=== PATIENT | male | born 1980 | race Hispanic/Latino ===

== ENCOUNTER 2016-05-20 22:07 | Emergency (ER) | payer SELFPAY ==
[2016-05-20] MEDS ORDERED: Albuterol-Ipratrop 3 mg / 0.5 (3 ml) UD ONE (22:28)
[2016-05-20 22:38] VITALS: RESP 18; TEMP 98.2
[2016-05-21 00:09] LABS: CHLORIDE 94 mmol/L (98-107); POTASSIUM 3.5 mmol/L (3.6-5.2); SODIUM 135 mmol/L (132-148)
[2016-05-21 00:11] LABS: GFR AFRICAN-AMERICAN > 60
[2016-05-21 00:12] LABS: ALB/GLOB RATIO 1.2 (1.0-2.1); ALKALINE PHOSPHATASE 65 U/L (38-126); ALT/SGPT 23 U/L (21-72); AST/SGOT 27 U/L (17-59); BILIRUBIN,TOTAL 0.5 mg/dL (0.2-1.3); BLOOD UREA NITROGEN 16 mg/dL (9-20); CALCIUM 8.4 mg/dl (8.6-10.4); CARBON DIOXIDE 26 mmol/L (22-30); GLUCOSE,RANDOM 111 mg/dL (75-110); TOTAL PROTEIN 7.6 g/dL (6.3-8.3)
[2016-05-21 00:13] LABS: ALCOHOL SERUM < 10 mg/dl (0-10)
[2016-05-21 00:15] LABS: BASO # 0.4 K/uL (0.0-0.2); BASO % 2.5 % (0.0-2.0); EOS # 0.1 K/uL (0.0-0.7); EOS % 0.6 % (0.0-4.0); HEMATOCRIT 37.4 % (35.0-51.0); LYMPH # 0.8 K/uL (1.0-4.3); LYMPH % 5.6 % (20.0-40.0); MEAN CELL VOLUME 88.4 fL (80.0-94.0); MEAN CORPUSCULAR HEMOGLOBIN 30.5 pg (27.0-31.0); MEAN CORPUSCULAR HGB CONC 34.5 g/dL (33.0-37.0); MONO # 1.4 K/uL (0.0-0.8); NRBC % 0.1 % (0.0-2.0); PLATELET COUNT 249 K/uL (130-400); RED CELL DISTRIBUTION WIDTH 13.1 % (11.5-14.5)
--- NOTE | 2016-05-21 00:32 | C.PDOC ---
History Of Present Illness Patient is a 35 year old male who presents to the ER with a complaint of feeling unusual after ingesting an unknown pill for recreational use. Patient states that he is a frequent ETOH and substance abuser. Patient reports having abused marijuana today. Denies any fever, chills, or nausea. Time Seen by Provider: 05/20/16 23:36 Chief Complaint (Nursing): Substance Abuse History Per: Patient History/Exam Limitations: no limitations Onset/Duration Of Symptoms: Hrs Current Symptoms Are (Timing): Still Present Suicide/Self Injury Attempted (Context): None Modifying Factor(s): Marijuana, Narcotics (Unknown) Past Medical History Reviewed: Historical Data, Nursing Documentation, Vital Signs Vital Signs: Last Vital Signs Temp 98.2 F 05/20/16 22:35 Pulse 74 05/20/16 22:35 Resp 18 05/20/16 22:35 BP 126/82 05/20/16 22:35 Pulse Ox 98 05/21/16 00:36 - Medical History PMH: Anxiety, Back Problems, Depression - [facility] Procedures GROUP PSYCHOTHERAPY (04/10/16) INDIV PSYCHOTHERAPY FOR SUBSTANCE ABUSE TREATMENT, SUPPORT (04/10/16) INDIVIDUAL PSYCHOTHERAPY, BEHAVIORAL (12/20/15) INDIVIDUAL PSYCHOTHERAPY, SUPPORTIVE (04/10/16) MEDICATION MANAGEMENT (04/10/16) Family History: States: Unknown Family Hx - Social History Hx Alcohol Use: No Hx Substance Use: No - Immunization History Hx Tetanus Toxoid Vaccination: No Hx Influenza Vaccination: No Hx Pneumococcal Vaccination: No Review Of Systems Except As Marked, All Systems Reviewed And Found Negative. Constitutional: Negative for: Fever, Chills Respiratory: Negative for: Shortness of Breath Gastrointestinal: Negative for: Nausea Physical Exam - Physical Exam Appears: Well, Non-toxic Skin: Normal Color, Warm, Dry Eye(s): bilateral: Other (Pin point pupils) Oral Mucosa: Moist Cardiovascular: Rhythm Regular Respiratory: Normal Breath Sounds, No Accessory Muscle Use, No Rales, No Rhonchi , No Wheezing Gastrointestinal/Abdominal: Soft, No Tenderness, No Distention, No Guarding, No Rebound ED Course And Treatment - Laboratory Results Result Diagrams: 05/20/16 23:56 05/20/16 23:56 Lab Interpretation: Abnormal (leukocytosis of ? etiology) O2 Sat by Pulse Oximetry: 98 (Room air) Pulse Ox Interpretation: Normal Progress Note: Blood work and, EKG, and urinalysis ordered. Reevaluation Time: 00:46 (pt still trying to provide a urine sample) Medical Decision Making Medical Decision Making: polysubstance abuse Pt cautioned we will probably NOT be able to identify the unknown intoxicant he was abusing in the past 2 days with our current UDS- Disposition - Disposition Disposition Time: 01:00 Condition: GOOD - Clinical Impression Clinical Impression: Drug abuse - Scribe Statement The provider has reviewed the documentation as recorded by the Scribe Jl Márquez All medical record entries made by the Scribe were at my direction and personally dictated by me. I have reviewed the chart and agree that the record accurately reflects my personal performance of the history, physical exam, medical decision making, and the department course for this patient. I have also personally directed, reviewed, and agree with the discharge instructions and disposition. Physician Patient Turnover Patient Signed Over To: Tonny Jensen Handoff Comments: follow-up toxicology and dispo when sober.
[2016-05-21 01:39] LABS: EOSINOPHIL 1 % (0-4); NEUTROPHIL 77 % (50-75); TOTAL CELLS COUNTED 100
[2016-05-21] MEDS ORDERED: Potassium Chloride 20 mEq/15 ml LIQ UD PO STA (04:31)
[2016-05-21] MEDS ORDERED: Potassium Chloride 20 mEq ER Tab PO ONE (04:47)
[2016-05-21 04:51] LABS: RBC URINE 2 /hpf (0-3); URINE BILIRUBIN NEGATIVE (NEGATIVE); URINE BLOOD NEGATIVE (NEGATIVE); URINE COLOR Yellow (YELLOW); URINE GLUCOSE (UA) NORMAL (Normal); URINE KETONE TRACE mg/dL (NEGATIVE); URINE LEUKOCYTE ESTERASE NEG Leu/uL (Negative); URINE PROTEIN NEGATIVE (NEGATIVE); URINE UROBILINOGEN NORMAL mg/dL (0.2-1.0); WBC URINE 3 /hpf (0-5)
[2016-05-21 06:43] VITALS: BP 121/77; PULSE 73; O2SAT 95
--- NOTE | 2016-05-23 07:58 | CARD ---
APPROVED REPORT EKG Measurement Heart [id number] <Conclusion> Normal sinus rhythm Rightward axis Borderline ECG
== END 2016-05-21 06:48 | disposition home or self-care (01) ==
LOC: C.ER 22:07
DX: F19.10 Other psychoactive substance abuse, uncomplicated (principal)
CPT/HCPCS: 80053; 81001; 85025; 99285; G0480

== ENCOUNTER 2017-02-23 18:22 | Inpatient (IN) | payer MEDICAID, OTHER ==
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
[2017-02-23 20:36] LABS: BASO % 0.4 % (0.0-2.0); EOS # 0.1 K/uL (0.0-0.7); EOS % 1.3 % (0.0-4.0); HEMATOCRIT 33.6 % (35.0-51.0); LYMPH # 1.7 K/uL (1.0-4.3); LYMPH % 19.8 % (20.0-40.0); MEAN CORPUSCULAR HEMOGLOBIN 29.8 pg (27.0-31.0); MEAN CORPUSCULAR HGB CONC 34.3 g/dL (33.0-37.0); MEAN PLATELET VOLUME 7.7 fL (7.2-11.7); WHITE BLOOD COUNT 8.4 K/uL (4.8-10.8)
[2017-02-23 20:42] LABS: RBC URINE 10 /hpf (0-3); URINE BACTERIA RARE (<OCC); URINE BILIRUBIN NEGATIVE (NEGATIVE); URINE BLOOD 1+ (NEGATIVE); URINE COLOR Amber (YELLOW); URINE GLUCOSE (UA) NORMAL (Normal); URINE KETONE TRACE mg/dL (NEGATIVE); URINE LEUKOCYTE ESTERASE NEG Leu/uL (Negative); URINE PROTEIN 1+ mg/dL (NEGATIVE); URINE UROBILINOGEN NORMAL mg/dL (0.2-1.0); WBC URINE 10 /hpf (0-5)
[2017-02-23 20:48] LABS: ALB/GLOB RATIO 1.2 (1.0-2.1); ALCOHOL SERUM < 10 mg/dl (0-10); ALKALINE PHOSPHATASE 49 U/L (38-126); ALT/SGPT 22 U/L (21-72); AST/SGOT 41 U/L (17-59); BILIRUBIN,TOTAL 0.7 mg/dL (0.2-1.3); BLOOD UREA NITROGEN 9 mg/dL (9-20); CALCIUM 8.2 mg/dl (8.6-10.4); CARBON DIOXIDE 31 mmol/L (22-30); CHLORIDE 98 mmol/L (98-107); GFR AFRICAN-AMERICAN > 60; GLUCOSE,RANDOM 128 mg/dL (75-110); POTASSIUM 3.2 mmol/L (3.6-5.2); SODIUM 136 mmol/L (132-148); TOTAL PROTEIN 6.6 g/dL (6.3-8.3)
[2017-02-23] MEDS ORDERED: Potassium Chloride 20 mEq ER Tab PO ONE (21:22)
[2017-02-23] MEDS: Potassium Chloride 20 mEq ER Tab PO SCH (21:23)
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
[2017-02-24] MEDS: Potassium Chloride 20 mEq ER Tab PO SCH (09:35)
--- NOTE | 2017-02-24 10:13 | PCM.PSYCH ---
Initial Psychiatric Evaluation - Initial Psychiatric Evaluation Type of Admission: Voluntary Legal Status: Capacity Chief Complaint (in patient's own words): "I was very depressed" History of Present Illness and Precipitating Events: He is seen, chart reviewed, case discussed. Patient is a 36 year old single, male with no children, living in shelters in [facility] and is unemployed. Patient reports increasingly depressed mood, feelings of helplessness, poor sleep and poor appetite. The patient also reports auditory hallucinations, saying negative things. He feels paranoid too, but no delusions elicited. He also claimed to be suicidal but not anymore, although he claimed he was to our nurses. Nevertheless, he contracted for safety and will follow his safety plan. These all (except for his depression) may be due to his wanting to be admitted. He is a cocaine, opioid and cannabis user but he has not used coke/opi "recently " he claims. "Maybe 02/05" He smokes 10 cig/d Psychiatric History: Hospitalized "many times," this is his second here. Family Psychiatric History: Uncle - Unspecified dx Medications: Denies, non-compliant Past Medical History: Denies Past Surgical History: Denies Allergies: Denies Current Medications: Active Medications Generic Name Dose Route Start Last Admin Trade Name Freq PRN Reason Stop Dose Admin Aripiprazole 5 mg 02/24/17 10:00 02/24/17 09:35 Abilify PO 5 mg DAILY ANGIE Administration Hydroxyzine HCl 25 mg 02/23/17 22:26 02/24/17 06:00 Atarax PO 25 mg TID PRN Administration Anxiety Ibuprofen 400 mg 02/24/17 05:40 02/24/17 06:01 Motrin Tab PO 400 mg Q6 PRN Administration Pain, moderate (4-7) Potassium Chloride 20 meq 02/24/17 10:00 02/24/17 09:35 K-Dur 20 Meq Er Tab PO 20 meq DAILY ANGIE Administration Trazodone HCl 50 mg 02/23/17 22:23 Desyrel PO HS PRN Insomnia Zolpidem Tartrate 5 mg 02/23/17 21:28 02/23/17 23:20 Ambien PO 5 mg HS PRN Administration Insomnia Past Psychiatric History - Past Psychiatric History Previous Treatment History: Inpatient Pertinent Medical Hx (Current Medical&Sleep Prob, Allergies): Allergies Allergy/AdvReac Type Severity Reaction Status Date / Time No Known Allergies Allergy Verified 02/23/17 15:40 No Known Home Med 02/23/17 Review of Systems - Neurological Neurological: UNREMARKABLE - Psychiatric Psychiatric: Abnormal Sleep Pattern, Anhedonia, Anxiety, Behavioral Changes, Change in Appetite, Depression, Difficulty Concentrating, Hallucinations, Irritability, Paranoia. absent: Homicidal Ideation, Suicidal Ideation Mental Status Examination - Personal Presentation Personal Presentation: Looks stated age - Affect Affect: Constricted - Motor Activity Motor Activity: Calm - Reliability in Providing Information Reliability in Providing Information: Fair - Speech Speech: Organized - Mood Mood: Depressed, Anxious - Formal Thought Process Formal Thought Process: No Impairment - Cognitive Functions Orientation: Person, Place, Situation, Time Sensorium: Alert Attention/Concentration: Attentive Abstract Thinking: [place] Estimate of Intelligence: Average Judgement: Intact, as evidence by: Insight regarding need for hospitalization Memory: Recent intact, as evidence by: Ability to recall events of the day, Remote intact, as evidenced by: Abilit to recall sig. life events - Risk Risk: Diminished functioning - Strength & Assets Inventory Strength & Assets Inventory: Cooperative - Limitations Limitations: Living alone, Other DSM 5 DX - DSM 5 DSM 5 Diagnosis: Major Depressive Disorder recurrent, severe with Psychotic Features Cocaine use disorder, severe - in early remission Opioid use disorder, severe Personality d/o- unspecified - Recommended/Plan of Treatment Treatment Recommendations and Plan of Treatment: Remeron for depression Abilify for mood sxs and AH/PI As needed medications Gabapentin for augmentation Attend groups and activities Supportive therapy and psychoeducation MA for abstinence CBT for relapse prevention Encourage MAT Refer to rehab or IOP Attend self-help groups as well 33 min Projected ELOS: 5-6 days Prognosis: good w treatment Discharge Plan and Discharge Criteria: no major sxs refer to rehab - Smoking Cessation Smoking Cessation Initiated: Yes
--- NOTE | 2017-02-25 18:29 | PCM.PYCHPN ---
Psychiatric Progress Note - Psychiatric Progress Note Patient seen today, length of contact: 16 minutes Patient Chief Complaint: "I hear voices" Problems Identified/Issues Discussed: Pt was seen and evaluated. Chart reviewed. Pt reported that he had command hallucinations and telling him to do scafry things. Additionally, stated that he tried to ignore them by involving himself in other activities. He reproted that he was smoking 1-2 joints of marijuana daily. He stated that he does not know that joints were laced or not laced. He denied SI, HI, intent or plan. DSM 5 Symptoms Update: Major Depressive Disorder recurrent, severe with Psychotic Features Cocaine use disorder, severe - in early remission Opioid use disorder, severe Personality d/o- unspecified Medication Change: No Medical Record Reviewed: Yes Mental Status Examination - Cognitive Function Orientation: Person, Place, Situation, Time Memory: Intact Attention: WNL Concentration: Poor Association: Loose Fund of Knowledge: WNL Decription of patient's judgement and insights: limited/limited Addtional comments: superficially cooperative - Mood Mood: Depressed, Anxious - Affect Affect: Constricted - Speech Speech: Appropriate, Soft - Formal Thought Process Formal Thought Process: Hallucinations, Paranoia (delusions that people are looking and talking about him) - Suicidal Ideation Suicidal Ideation: No Plan: denied - Homicidal Ideation Homicidal Ideation: No Plan: denied Goal/Treatment Plan - Goal/Treatment Plan Need for Continued Stay: Severe depression anxiety, Discharge may exacerbated symptoms, Severe functional impairment Progress Toward Problem(s) and Goals/Treatment Plan: Continue current meds as per primary team. Therapy in milieu Supportive therapy provided. Estimated Date of D/C: 02/27/17 - Smoking Cessation Smoking Cessation Initiated: Yes
[2017-02-26 06:03] VITALS: O2SAT 96
--- NOTE | 2017-02-26 11:28 | PCM.PYCHPN ---
Psychiatric Progress Note - Psychiatric Progress Note Patient seen today, length of contact: 16 minutes Medication Change: No Medical Record Reviewed: Yes Mental Status Examination - Cognitive Function Orientation: Person, Place, Situation, Time Memory: Intact Attention: WNL Concentration: Poor Association: Loose Fund of Knowledge: WNL - Mood Mood: Depressed, Anxious - Affect Affect: Constricted - Speech Speech: Appropriate, Soft - Formal Thought Process Formal Thought Process: Hallucinations, Paranoia (delusions that people are looking and talking about him) - Suicidal Ideation Suicidal Ideation: No - Homicidal Ideation Homicidal Ideation: No Goal/Treatment Plan - Goal/Treatment Plan Need for Continued Stay: Severe depression anxiety, Discharge may exacerbated symptoms, Severe functional impairment Progress Toward Problem(s) and Goals/Treatment Plan: Major Depressive Disorder recurrent, severe with Psychotic Features Cocaine use disorder, severe - in early remission Opioid use disorder, severe Personality d/o- unspecified Remeron for depression Abilify for mood sxs and AH/PI As needed medications Gabapentin for augmentation Attend groups and activities Supportive therapy and psychoeducation [place] for abstinence CBT for relapse prevention Encourage MAT Refer to rehab or IOP Attend self-help groups as well Estimated Date of D/C: 02/27/17
--- NOTE | 2017-02-27 10:27 | PCM.PYCHPN ---
Psychiatric Progress Note - Psychiatric Progress Note Patient seen today, length of contact: 16 minutes Medication Change: Yes (Risperdal ) Medical Record Reviewed: Yes Mental Status Examination - Cognitive Function Orientation: Person, Place, Situation, Time Memory: Intact Attention: WNL Concentration: Poor Association: Loose Fund of Knowledge: WNL - Mood Mood: Depressed, Anxious - Affect Affect: Constricted - Speech Speech: Appropriate, Soft - Formal Thought Process Formal Thought Process: Hallucinations, Paranoia (delusions that people are looking and talking about him) - Suicidal Ideation Suicidal Ideation: No - Homicidal Ideation Homicidal Ideation: No Goal/Treatment Plan - Goal/Treatment Plan Need for Continued Stay: Severe depression anxiety, Severe functional impairment Progress Toward Problem(s) and Goals/Treatment Plan: Major Depressive Disorder recurrent, severe with Psychotic Features Cocaine use disorder, severe - in early remission Opioid use disorder, severe Personality d/o- unspecified Remeron for depression Abilify for mood sxs and AH/PI As needed medications Gabapentin for augmentation Attend groups and activities Supportive therapy and psychoeducation [place] for abstinence CBT for relapse prevention Encourage MAT Refer to rehab or IOP Attend self-help groups as well Estimated Date of D/C: 02/27/17
--- NOTE | 2017-02-28 09:44 | PCM.PYCHPN ---
Psychiatric Progress Note - Psychiatric Progress Note Patient seen today, length of contact: 16 minutes Medication Change: Yes (d/c Risperdal, increase seroquel) Medical Record Reviewed: Yes Mental Status Examination - Cognitive Function Orientation: Person, Place, Situation, Time Memory: Intact Attention: WNL Concentration: Poor Association: Loose Fund of Knowledge: WNL - Mood Mood: Depressed, Anxious - Affect Affect: Constricted - Speech Speech: Appropriate, Soft - Formal Thought Process Formal Thought Process: Hallucinations, Paranoia (delusions that people are looking and talking about him) - Suicidal Ideation Suicidal Ideation: No - Homicidal Ideation Homicidal Ideation: No Goal/Treatment Plan - Goal/Treatment Plan Need for Continued Stay: Severe depression anxiety, Discharge may exacerbated symptoms, Severe functional impairment Progress Toward Problem(s) and Goals/Treatment Plan: Major Depressive Disorder recurrent, severe with Psychotic Features Cocaine use disorder, severe - in early remission Opioid use disorder, severe Personality d/o- unspecified Remeron for depression increase Abilify for mood sxs and AH/PI As needed medications increase Gabapentin for augmentation Attend groups and activities Supportive therapy and psychoeducation [place] for abstinence CBT for relapse prevention Encourage MAT Refer to rehab or IOP Attend self-help groups as well Estimated Date of D/C: 02/27/17
[2017-03-01 06:24] VITALS: BP 99/59; PULSE 70; RESP 19; TEMP 98.3
--- NOTE | 2017-03-01 09:34 | PCM.PYCHDC ---
Mental Status Examination - Mental Status Examination Orientation: Person, Place, Situation, Time Memory: Intact Mood: Neutral Affect: Constricted Speech: Soft Attention: WNL Concentration: WNL Association: WNL Fund of Knowledge: WNL Formal Thought Process: No Impairment Description of patient's judgement and insight: good, fair Psychotic Thoughts and Behaviors: denies any AVH Suicidal Ideation: No Current Homicidal Ideation?: No Discharge Summary - Discharge Note Reason for Hospitalization: Patient is a 36 year old single, male with no children, living in shelters in [facility] and is unemployed. Patient reports increasingly depressed mood, feelings of helplessness, poor sleep and poor appetite. The patient also reports auditory hallucinations, saying negative things. He feels paranoid too, but no delusions elicited. He also claimed to be suicidal but not anymore, although he claimed he was to our nurses. Nevertheless, he contracted for safety and will follow his safety plan. These all (except for his depression) may be due to his wanting to be admitted. He is a cocaine, opioid and cannabis user but he has not used coke/opi "recently " he claims. "Maybe 02/05" He smokes 10 cig/d Psychiatric History: Hospitalized "many times," this is his second here. Family Psychiatric History: Uncle - Unspecified dx Consultations:: List each consultation separately and include: 1. Reason for request. 2. Findings. 3. Follow-up Summary of Hospital Course include:: 1. Description of specific treatment plan utilized for patients during their course of treatmen. 2. Summarize the time- course for resolution of acute symptoms and/or regressed behaviors. 3. Describe issues identified and worked on during hospitalization. 4. Describe medication utilized. 5. Describe medical problems identified and treated. 6. Reassessment of suicide risk Summary of Hospital Course: During the course of his stay, patient (pt) started progressively improving and he no longer remained irritable, depressed, and suicidal. His mood and anxiety symptoms were improved and he started attending groups and meetings and started socializing. Patient denied any feelings of hopelessness, helplessness, and worthlessness, denied any problem with the sleep or appetite, denied suicidal ideation or homicidal ideation. Pt denied any auditory or visual hallucinations. Some changes were made in his current medications and patient was discharged on following medications. He tolerated these medications very well and denied any side effects. He was discharged to the [facility]. - Final Diagnosis (DSM 5) Condition upon Discharge: STABLE DSM 5: Major Depressive Disorder recurrent, severe with Psychotic Features Cocaine use disorder, severe - in early remission Opioid use disorder, severe Personality d/o- unspecified Disposition: HOME/ ROUTINE Follow-up Treatment Plan: Education: Pt was educated and counseled about the risks and benefits of taking and not taking medications. Pt was educated and counseled about the risks of drinking and abusing drugs. Pt was educated and counseled to go to the ER or call 911 if pt develop suicidal ideation or homicidal ideation, worsening of symptoms or severe side effects of the meds. Prescriptions/Medication Reconciliation: ARIPiprazole [Abilify] 15 mg PO DAILY #30 tab Gabapentin [Neurontin] 300 mg PO TID #90 cap Mirtazapine [Remeron] 30 mg PO HS #30 tab traZODone [Desyrel] 100 mg PO HS PRN #60 tab PRN Reason: Insomnia - Smoking Cessation Smoking Cessation Medication prescribed: No - Antipsychotic Medications Pt discharged on 2 or more routine antipsychotic medications: No
== END 2017-03-01 09:55 | disposition home or self-care (01) | DRG 430 ==
LOC: C.ER 18:22 → C.9E 21:29 → C.5E 22:10
PROVIDERS: ADMIT Psychiatry & Neurology Psychiatry; ATTEND Psychiatry & Neurology Psychiatry
DX: F33.3 Major depressive disorder, recurrent, severe with psychotic symptoms (principal); F11.20 Opioid dependence, uncomplicated; R45.851 Suicidal ideations; F14.20 Cocaine dependence, uncomplicated; F17.210 Nicotine dependence, cigarettes, uncomplicated

== ENCOUNTER 2017-04-09 23:22 | Emergency (ER) | payer MEDICAID, OTHER ==
--- NOTE | 2017-04-10 00:34 | C.PDOC ---
History Of Present Illness <Iam Greenberg - Last Filed: 04/10/17 01:24> <Barbara Perkins - Last Filed: 04/10/17 05:51> Patient presents to the ER requesting detox from heroin, last use was 7 bags this morning. Denies suicidal ideation or homicidal ideation. (Iam Greenberg) History Per: Patient History/Exam Limitations: no limitations Suicide/Self Injury Attempted (Context): None Severity: None Pain Scale Rating Of: 0 Associated Symptoms: denies: Depression, Suicidal Thoughts, Suicidal Plan, Other (Homicidal ideation) Involuntary Hold By: None Recent travel outside of the [place]: No <Ima Greenberg - Last Filed: 04/10/17 01:24> <Barbara Perkins - Last Filed: 04/10/17 05:51> Time Seen by Provider: 04/10/17 00:33 Chief Complaint (Nursing): Substance Abuse Past Medical History Reviewed: Historical Data, Nursing Documentation, Vital Signs - Medical History PMH: Anxiety, Back Problems, Depression Family History: States: No Known Family Hx - Social History Hx Alcohol Use: No Hx Substance Use: Yes - Immunization History Hx Tetanus Toxoid Vaccination: No Hx Influenza Vaccination: Yes Hx Pneumococcal Vaccination: No <DionicioAlexandramarlin - Last Filed: 04/10/17 01:24> Vital Signs: Last Vital Signs Temp 97.8 F 04/10/17 05:45 Pulse 81 04/10/17 05:45 Resp 18 04/10/17 05:45 BP 107/62 04/10/17 05:45 Pulse Ox 95 04/10/17 05:45 - [facility] Procedures GROUP PSYCHOTHERAPY (04/10/16) INDIV PSYCHOTHERAPY FOR SUBSTANCE ABUSE TREATMENT, SUPPORT (04/10/16) INDIVIDUAL PSYCHOTHERAPY, BEHAVIORAL (12/20/15) INDIVIDUAL PSYCHOTHERAPY, SUPPORTIVE (04/10/16) MEDICATION MANAGEMENT (04/10/16) Review Of Systems Constitutional: Negative for: Fever, Chills Gastrointestinal: Negative for: Nausea, Vomiting, Diarrhea Psych: Negative for: Suicidal ideation, Other (Homicidal ideation) <Iam Greenberg - Last Filed: 04/10/17 01:24> Physical Exam - Physical Exam Appears: Non-toxic, No Acute Distress Skin: Warm, Dry Head: Normacephalic Oral Mucosa: Moist Chest: Symmetrical, No Tenderness Cardiovascular: Rhythm Regular Respiratory: No Rales, No Rhonchi, No Wheezing Gastrointestinal/Abdominal: Soft, No Tenderness Neurological/Psych: Oriented x3 <Iam Greenberg - Last Filed: 04/10/17 01:24> ED Course And Treatment O2 Sat by Pulse Oximetry: 99 (room air) Pulse Ox Interpretation: Normal Progress Note: Urinalysis ordered. <Iam Greenberg - Last Filed: 04/10/17 01:24> Disposition Counseled Patient/Family Regarding: Studies Performed, Diagnosis - Disposition Disposition Time: 00:33 <Iam Greenberg - Last Filed: 04/10/17 01:24> - Disposition Disposition Time: 05:51 <Barbara Perkins - Last Filed: 04/10/17 05:51> - Disposition Condition: STABLE Instructions: Opioid Dependence (ED) Forms: [facility] (Arabic) - Clinical Impression Clinical Impression: Drug dependence - Scribe Statement The provider has reviewed the documentation as recorded by the Scribe <Iam Greenberg - Last Filed: 04/10/17 01:24> <Barbara Perkins - Last Filed: 04/10/17 05:51> - Scribe Statement Jl Márquez All medical record entries made by the Scribe were at my direction and personally dictated by me. I have reviewed the chart and agree that the record accurately reflects my personal performance of the history, physical exam, medical decision making, and the department course for this patient. I have also personally directed, reviewed, and agree with the discharge instructions and disposition. (Iam Greenberg)
[2017-04-10 01:00] LABS: URINE BILIRUBIN NEGATIVE (NEGATIVE); URINE BLOOD NEGATIVE (NEGATIVE); URINE CLARITY Hazy (Clear); URINE COLOR Yellow (YELLOW); URINE GLUCOSE (UA) NORMAL (Normal); URINE LEUKOCYTE ESTERASE NEG Leu/uL (Negative); URINE NITRATE NEGATIVE (NEGATIVE); URINE PROTEIN NEGATIVE (NEGATIVE)
[2017-04-10 01:13] LABS: BARBITURATES, UR NEGATIVE (NEGATIVE); BENZODIAZEPINES, UR NEGATIVE (NEGATIVE); PHENCYCLIDINE, UR NEGATIVE (NEGATIVE)
[2017-04-10 01:20] LABS: OPIATES, UR POSITIVE (NEGATIVE)
[2017-04-10 05:48] VITALS: BP 107/62; PULSE 81; RESP 18; TEMP 97.8; O2SAT 95
== END 2017-04-10 05:54 | disposition home or self-care (01) ==
LOC: C.ER 23:22
DX: F19.20 Other psychoactive substance dependence, uncomplicated (principal)

== ENCOUNTER 2017-04-10 07:13 | Inpatient (IN) | payer MEDICAID ==
--- NOTE | 2017-04-10 08:06 | C.PDOC ---
History Of Present Illness 36 y/o male presents to ED requesting Heroin detox and with c/o of cold like symptoms. Patient reports last used yesterday and states he snorts 6 bags daily. Patient denies fever, sob, vomiting, abdominal pain or any other complaints at this time. Time Seen by Provider: 04/10/17 07:48 Chief Complaint (Nursing): Substance Abuse History Per: Patient History/Exam Limitations: no limitations Onset/Duration Of Symptoms: Days Current Symptoms Are (Timing): Still Present Suicide/Self Injury Attempted (Context): None Past Medical History Reviewed: Historical Data, Nursing Documentation, Vital Signs Vital Signs: Last Vital Signs Temp 97.6 F 04/10/17 09:52 Pulse 79 04/10/17 09:52 Resp 20 04/10/17 09:52 BP 111/65 04/10/17 09:52 Pulse Ox 97 04/10/17 09:52 - Medical History PMH: Anxiety, Back Problems, Depression Surgical History: No Surg Hx - [facility] Procedures GROUP PSYCHOTHERAPY (04/10/16) INDIV PSYCHOTHERAPY FOR SUBSTANCE ABUSE TREATMENT, SUPPORT (04/10/16) INDIVIDUAL PSYCHOTHERAPY, BEHAVIORAL (12/20/15) INDIVIDUAL PSYCHOTHERAPY, SUPPORTIVE (04/10/16) MEDICATION MANAGEMENT (04/10/16) Family History: States: No Known Family Hx - Social History Hx Alcohol Use: No Hx Substance Use: Yes (last use yesterday) - Immunization History Hx Tetanus Toxoid Vaccination: No Hx Influenza Vaccination: Yes Hx Pneumococcal Vaccination: No Review Of Systems Respiratory: Positive for: Cough. Negative for: Shortness of Breath Psych: Negative for: Suicidal ideation, Withdrawal Physical Exam - Physical Exam Additional Physical Exam Comments: Constitutional: No acute distress. Head: Normocephalic. Atraumatic. Eyes: PERRL. ENT: Moist mucous membranes. No pharyngeal Erythema or Exudates Neck: Supple. Cardiovascular: Regular rate. Radial pulse 2+ bilaterally. Chest: No tenderness. Respiratory: Clear to auscultation bilaterally. GI: Soft. Nontender. Nondistended. Back: No CVA tenderness. Musculoskeletal: No tenderness or swelling of extremities. Skin: No rash. Neurologic: Alert, no focal deficit ED Course And Treatment - Laboratory Results Result Diagrams: 04/10/17 08:04 04/10/17 08:04 O2 Sat by Pulse Oximetry: 98 (RA) Pulse Ox Interpretation: Normal Medical Decision Making Medical Decision Making: Plan: UA, Blood work, Pending Crisis eval Disposition - Disposition Disposition: HOSPITALIZED Disposition Time: 09:42 Condition: STABLE - Clinical Impression Clinical Impression: Opioid use disorder, severe, dependence - Scribe Statement The provider has reviewed the documentation as recorded by the Alesia Francois All medical record entries made by the Baltaibkina were at my direction and personally dictated by me. I have reviewed the chart and agree that the record accurately reflects my personal performance of the history, physical exam, medical decision making, and the department course for this patient. I have also personally directed, reviewed, and agree with the discharge instructions and disposition.
[2017-04-10 08:09] LABS: BASO # 0.1 K/uL (0.0-0.2); BASO % 0.6 % (0.0-2.0); EOS # 0.2 K/uL (0.0-0.7); EOS % 1.5 % (0.0-4.0); LYMPH # 1.7 K/uL (1.0-4.3); MEAN CELL VOLUME 89.2 fL (80.0-94.0); MEAN CORPUSCULAR HEMOGLOBIN 30.4 pg (27.0-31.0); MEAN CORPUSCULAR HGB CONC 34.1 g/dL (33.0-37.0); MEAN PLATELET VOLUME 7.6 fL (7.2-11.7); MONO # 1.7 K/uL (0.0-0.8); MONO % 13.6 % (0.0-10.0); NEUT # 8.8 K/uL (1.8-7.0); NEUT % 70.3 % (50.0-75.0); RBC 4.28 Mil/uL (4.40-5.90); RED CELL DISTRIBUTION WIDTH 13.6 % (11.5-14.5); WHITE BLOOD COUNT 12.5 K/uL (4.8-10.8)
[2017-04-10 08:19] LABS: URINE BACTERIA RARE (<OCC); URINE BILIRUBIN NEGATIVE (NEGATIVE); URINE BLOOD NEGATIVE (NEGATIVE); URINE CLARITY Hazy (Clear); URINE COLOR Yellow (YELLOW); URINE GLUCOSE (UA) NORMAL (Normal); URINE LEUKOCYTE ESTERASE TRACE Leu/uL (Negative); URINE NITRATE NEGATIVE (NEGATIVE); URINE PROTEIN NEGATIVE (NEGATIVE)
[2017-04-10 08:21] LABS: ALB/GLOB RATIO 1.1 (1.0-2.1); ALBUMIN 3.7 g/dL (3.5-5.0); ALT/SGPT 22 U/L (21-72); AST/SGOT 26 U/L (17-59); BLOOD UREA NITROGEN 12 mg/dL (9-20); CALCIUM 8.6 mg/dl (8.6-10.4); GFR AFRICAN-AMERICAN > 60; GFR NON-AFRICAN AMERICAN > 60
[2017-04-10 09:05] LABS: BARBITURATES, UR NEGATIVE (NEGATIVE); BENZODIAZEPINES, UR NEGATIVE (NEGATIVE); PHENCYCLIDINE, UR NEGATIVE (NEGATIVE)
[2017-04-10 09:07] LABS: OPIATES, UR POSITIVE (NEGATIVE)
--- NOTE | 2017-04-10 10:28 | PCM.PSYCH ---
Initial Psychiatric Evaluation - Initial Psychiatric Evaluation Type of Admission: Voluntary Legal Status: Capacity Chief Complaint (in patient's own words): "I need help" History of Present Illness and Precipitating Events: He is seen, chart reviewed, case discussed. Patient is a 36 year old single, male with no children, still living in shelters in [facility] or with friends and is unemployed. He is using 5-10 bags of heroin daily by snorting. Reports withdrawal sxs. Also using cocaine occasionally. He smokes 10 cig/d He admitted that he had taken 20- 30 mg methadone one time to cope with withdrawal few days ago. Denies psych sxs today other than mild depression Psychiatric History: Hospitalized "many times," including 5 E Family Psychiatric History: Uncle - Unspecified dx Past Medical History: Denies Past Surgical History: Denies Allergies: Denies Past Psychiatric History - Past Psychiatric History Previous Treatment History: Inpatient Pertinent Medical Hx (Current Medical&Sleep Prob, Allergies): Allergies Allergy/AdvReac Type Severity Reaction Status Date / Time No Known Allergies Allergy Verified 04/10/17 07:22 No Known Home Med 04/09/17 Review of Systems - Neurological Neurological: UNREMARKABLE - Psychiatric Psychiatric: Abnormal Sleep Pattern, Anxiety, Difficulty Concentrating, Irritability. absent: Hallucinations, Homicidal Ideation, Suicidal Ideation Mental Status Examination - Personal Presentation Personal Presentation: Looks stated age - Affect Affect: Constricted - Motor Activity Motor Activity: Calm - Reliability in Providing Information Reliability in Providing Information: Good - Speech Speech: Organized - Mood Mood: Anxious - Formal Thought Process Formal Thought Process: No Impairment - Cognitive Functions Orientation: Person, Place, Situation, Time Sensorium: Alert Attention/Concentration: Attentive Estimate of Intelligence: Average Judgement: Intact, as evidence by: Insight regarding need for hospitalization Memory: Recent intact, as evidence by: Ability to recall events of the day, Remote intact, as evidenced by: Abilit to recall sig. life events - Risk Risk: Withdrawal, Diminished functioning - Strength & Assets Inventory Strength & Assets Inventory: Cooperative - Limitations Limitations: Living alone DSM 5 DX - DSM 5 DSM 5 Diagnosis: Opioid withdrawal Opioid use d/o -severe Cocaine use d/o - moderate Tobacco use d/o - mild - Recommended/Plan of Treatment Treatment Recommendations and Plan of Treatment: Methadone detox As needed medications All risks, benefits and alternatives of medications, including no medications, discussed and the patient understood and agreed. Attend groups and activities Supportive therapy and psychoeducation [place] for abstinence CBT for relapse prevention Encourage MAT Refer to rehab or IOP Attend self-help groups as well 34 min Projected ELOS: 4-5 days
[2017-04-10] MEDS ORDERED: Aluminum Hydroxide/Magnesium Hydroxide Susp (30 mL) PO PRN (10:56)
--- NOTE | 2017-04-10 11:17 | PCM.BM ---
<Tasia Mra - Last Filed: 04/10/17 11:15> Treatment Plan Problems - Problems identified on initial assessmt Potential opiate withdrawal Date Initiated: 04/10/17 Time Initiated: 11:16 Assessment reference: NA Treatment assets and liabiliti Patient Assests: cooperative, insightful, self-reliant, ADL independent, physically healthy, negotiates basic needs Patient Liabilities: financial problems, substance abuse - Milieu Protocol Maintain good personal hygiene: daily Encourage regular showers, daily Remind patient to perform daily oral care, daily Assist patient to perform ADL's, every shift Encourage regular showers, every shift Remind patient to perform daily oral care, every shift Assist patient to perform ADL's Maintain personal safety: daily Educate patient to report safety concerns to staff, daily Monitor environment for contraband/sharps, every shift Educate patient to report safety concerns to staff, every shift Monitor environment for contraband/sharps Medication safety: Monitor for expected outcome, potential side effects: every shift, Assess barriers to learning: daily, every shift, Assess readiness for medication education: daily, every shift <Zafar Torres - Last Filed: 04/10/17 22:15> - Diagnosis (1) Opioid use disorder, severe, dependence Status: Acute Interventions: 04/10/17 22:15 * Assess 7x/week regarding severity of withdrawal * Educate regarding risks, benefits, side effects and alternatives of medications * Use Motivational Interviewing for abstinence * Use CBT for relapse prevention * Medication management for withdrawal symptoms * Encourage medication assisted treatment * <Shara Wilson - Last Filed: 04/11/17 11:54> Family Contact Family involvement: No known Family/SO - Goals for Treatment Patient goals for treatment: Complete detox and apply for rehab. Discharge/Continuing Care - Education Needs Education Needs: Patient Medication, Patient Diagnosis/Disease Process, Patient Coping Skills, Patient Anger Management skills, Patient Placement options, Patient Community resources - Discharge Discharge Criteria: Normal sleep pattern, Ability to care for self, No longer exhibiting s/s of withdrawal, Reduction of target symptoms Discharge to:: Substance Abuse Rehab - Treatment Team Participation Patient/Family/SO Statement: 04/11/17 11:54 "I wanna go inpatient from here..." Discussed with Family/SO: No Was Patient/Family/SO present at Treatment Team Meeting: Yes
--- NOTE | 2017-04-11 13:36 | PCM.PYCHPN ---
Psychiatric Progress Note - Psychiatric Progress Note Patient seen today, length of contact: 17 min Patient Chief Complaint: "Not well" Problems Identified/Issues Discussed: The pt is seen, chart reviewed, case discussed with staff. Support given, CBT and [place] used briefly No new symptoms reported, improving slowly and needs more time No SEs from medications, risks discussed. After care discussed - he iliana wants to go to a [facility] due to being homeless and keep relapsing all the time (has poor support and his "friends" all use drugs) Medication Change: Yes Medical Record Reviewed: Yes Mental Status Examination - Cognitive Function Orientation: Person, Place, Situation, Time Memory: Intact Attention: Poor Concentration: Poor Association: WNL Fund of Knowledge: WNL - Mood Mood: Anxious - Affect Affect: Constricted - Speech Speech: Appropriate - Formal Thought Process Formal Thought Process: No Impairment - Suicidal Ideation Suicidal Ideation: No - Homicidal Ideation Homicidal Ideation: No Goal/Treatment Plan - Goal/Treatment Plan Need for Continued Stay: Discharge may exacerbated symptoms, Severe functional impairment Progress Toward Problem(s) and Goals/Treatment Plan: Methadone detox As needed medications All risks, benefits and alternatives of medications, including no medications, discussed and the patient understood and agreed. Attend groups and activities Supportive therapy and psychoeducation [place] for abstinence CBT for relapse prevention Encourage MAT Refer to rehab or IOP Attend self-help groups as well
--- NOTE | 2017-04-12 14:51 | PCM.PYCHPN ---
Psychiatric Progress Note - Psychiatric Progress Note Patient seen today, length of contact: 15 min Patient Chief Complaint: "Still not good" Problems Identified/Issues Discussed: The pt is seen, chart reviewed, case discussed with staff. The pt is compliant with medications and reports no side-effects. Symptoms are improving but needs more time to stabilize. After care discussed, support and psychoeducation given. He spends so much time in bed, likely somewhat depressed and withdrawing but he denies depression, says he is worried a lot. He is interested in [facility] rehab. Medication Change: Yes (detox changes daily) Medical Record Reviewed: Yes Mental Status Examination - Cognitive Function Orientation: Person, Place, Situation, Time Memory: Intact Attention: Poor Concentration: Poor Association: WNL Fund of Knowledge: WNL - Mood Mood: Anxious - Affect Affect: Constricted - Speech Speech: Appropriate - Formal Thought Process Formal Thought Process: No Impairment - Suicidal Ideation Suicidal Ideation: No - Homicidal Ideation Homicidal Ideation: No Goal/Treatment Plan - Goal/Treatment Plan Need for Continued Stay: Discharge may exacerbated symptoms, Severe functional impairment Progress Toward Problem(s) and Goals/Treatment Plan: Methadone detox As needed medications All risks, benefits and alternatives of medications, including no medications, discussed and the patient understood and agreed. Attend groups and activities Supportive therapy and psychoeducation [place] for abstinence CBT for relapse prevention Encourage MAT Refer to rehab or IOP Attend self-help groups as well
--- NOTE | 2017-04-13 13:24 | PCM.PYCHPN ---
Psychiatric Progress Note - Psychiatric Progress Note Patient seen today, length of contact: 15 min Patient Chief Complaint: "So so" Problems Identified/Issues Discussed: The pt is seen, chart reviewed, case discussed with staff. Support given, CBT and [place] used briefly No new symptoms reported, improving slowly and needs more time No SEs from medications, risks discussed. After care discussed - [facility] Medication Change: Yes (detox changes daily) Medical Record Reviewed: Yes Mental Status Examination - Cognitive Function Orientation: Person, Place, Situation, Time Memory: Intact Attention: Poor Concentration: Poor Association: WNL Fund of Knowledge: WNL - Mood Mood: Anxious - Affect Affect: Constricted - Speech Speech: Appropriate - Formal Thought Process Formal Thought Process: No Impairment - Suicidal Ideation Suicidal Ideation: No - Homicidal Ideation Homicidal Ideation: No Goal/Treatment Plan - Goal/Treatment Plan Need for Continued Stay: Discharge may exacerbated symptoms, Severe functional impairment Progress Toward Problem(s) and Goals/Treatment Plan: Methadone detox As needed medications All risks, benefits and alternatives of medications, including no medications, discussed and the patient understood and agreed. Attend groups and activities Supportive therapy and psychoeducation [place] for abstinence CBT for relapse prevention Encourage MAT Refer to rehab or IOP Attend self-help groups as well
[2017-04-14 06:41] VITALS: RESP 18
--- NOTE | 2017-04-14 13:32 | PCM.PYCHPN ---
Psychiatric Progress Note - Psychiatric Progress Note Patient seen today, length of contact: 15 min Patient Chief Complaint: "So so" Problems Identified/Issues Discussed: The pt is seen, chart reviewed, case discussed with staff. The pt is compliant with medications and reports no side-effects. Symptoms are improving but needs more time to stabilize. After care discussed, support and psychoeducation given. He is aloof, mostly in bed. Medication Change: Yes (detox changes daily) Medical Record Reviewed: Yes Mental Status Examination - Cognitive Function Orientation: Person, Place, Situation, Time Memory: Intact Attention: Poor Concentration: Poor Association: WNL Fund of Knowledge: WNL - Mood Mood: Anxious - Affect Affect: Constricted - Speech Speech: Appropriate - Formal Thought Process Formal Thought Process: No Impairment - Suicidal Ideation Suicidal Ideation: No - Homicidal Ideation Homicidal Ideation: No Goal/Treatment Plan - Goal/Treatment Plan Need for Continued Stay: Discharge may exacerbated symptoms, Severe functional impairment Progress Toward Problem(s) and Goals/Treatment Plan: Methadone detox As needed medications All risks, benefits and alternatives of medications, including no medications, discussed and the patient understood and agreed. Attend groups and activities Supportive therapy and psychoeducation [place] for abstinence CBT for relapse prevention Encourage MAT Refer to rehab or IOP Attend self-help groups as well
[2017-04-15 06:52] VITALS: PULSE 68; TEMP 98.1
--- NOTE | 2017-04-15 08:44 | PCM.PYCHDC ---
Mental Status Examination - Mental Status Examination Orientation: Person, Place, Situation, Time Memory: Intact Mood: Neutral Affect: Broad Speech: Appropriate Attention: WNL Concentration: WNL Language: Word Retrieval Association: WNL Fund of Knowledge: WNL Formal Thought Process: No Impairment Description of patient's judgement and insight: fair Psychotic Thoughts and Behaviors: denies Suicidal Ideation: No Current Homicidal Ideation?: No Discharge Summary - Discharge Note Reason for Hospitalization: Opioid Detox Consultations:: List each consultation separately and include: 1. Reason for request. 2. Findings. 3. Follow-up Summary of Hospital Course include:: 1. Description of specific treatment plan utilized for patients during their course of treatmen. 2. Summarize the time- course for resolution of acute symptoms and/or regressed behaviors. 3. Describe issues identified and worked on during hospitalization. 4. Describe medication utilized. 5. Describe medical problems identified and treated. 6. Reassessment of suicide risk Summary of Hospital Course: On admission: Patient is a 36 year old single, male with no children, still living in shelters in [facility] or with friends and is unemployed. He is using 5-10 bags of heroin daily by snorting. Reports withdrawal sxs. Also using cocaine occasionally. He smokes 10 cig/d He admitted that he had taken 20- 30 mg methadone one time to cope with withdrawal few days ago. Denies psych sxs today other than mild depression Psychiatric History: Hospitalized "many times," including 5 E Family Psychiatric History: Uncle - Unspecified dx Past Medical History: Denies Past Surgical History: Denies Allergies: Denies Hospital Course: The pt was admitted and started on treatment with psychotherapy, support, psychoeducation and medications. [place] and CBT used. The pt attended groups and activities, as well as milieu therapy. All the risks and benefits of medications are discussed and the patient understood and agreed. The pt improved with the treatments provided. After care discussed with the patient: [facility] in He did not want any meds Another pt claimed he snorted one of his pills. - Diagnosis (1) Opioid use disorder, severe, dependence Status: Acute - Final Diagnosis (DSM 5) Condition upon Discharge: STABLE Disposition: REHAB FACILITY/REHAB UNIT Follow-up Treatment Plan: Continue below medications after discharge. Follow after care plan as discussed. Use relapse prevention skills Return to ER or call 911 if suicidal, homicidal or symptoms relapse. Stay away from stress, alcohol and drugs. See primary doctor regularly and get labs.
[2017-04-15 09:51] VITALS: BP 124/75; O2SAT 98
== END 2017-04-15 11:14 | DRG 745 ==
LOC: C.ER 07:13 → C.7D 09:44
PROVIDERS: ADMIT Psychiatry & Neurology Psychiatry; ATTEND Psychiatry & Neurology Psychiatry
PROC: HZ2ZZZZ Detoxification Services for Substance Abuse Treatment (ICD-10-PCS; principal; 2017-04-10)
PROC: HZ59ZZZ Individual Psychotherapy for Substance Abuse Treatment, Supportive (ICD-10-PCS; 2017-04-10)
PROC: HZ46ZZZ Group Counseling for Substance Abuse Treatment, Psychoeducation (ICD-10-PCS; 2017-04-10)
DX: F11.23 Opioid dependence with withdrawal (principal); F14.90 Cocaine use, unspecified, uncomplicated; F32.9 Major depressive disorder, single episode, unspecified; F17.210 Nicotine dependence, cigarettes, uncomplicated

== ENCOUNTER 2017-07-20 04:18 | Emergency (ER) | payer MEDICAID ==
[2017-07-20 04:25] VITALS: BP 117/74; PULSE 88; RESP 18; TEMP 98.3; O2SAT 96
--- NOTE | 2017-07-20 04:31 | C.PDOC ---
History Of Present Illness 36 year old male presents to the ER requesting detox from ETOH and cocaine. Denies physical complaints at this time. Chief Complaint (Nursing): Substance Abuse History Per: Patient History/Exam Limitations: no limitations Onset/Duration Of Symptoms: Hrs Associated Symptoms: denies: Depression, Suicidal Thoughts Involuntary Hold By: None Recent travel outside of the [place]: No Past Medical History Reviewed: Historical Data, Nursing Documentation, Vital Signs Vital Signs: Last Vital Signs Temp 98.3 F 07/20/17 04:23 Pulse 88 07/20/17 04:23 Resp 18 07/20/17 04:23 BP 117/74 07/20/17 04:23 Pulse Ox 96 07/20/17 04:30 - Medical History PMH: Anxiety, Back Problems, Depression - [facility] Procedures DETOXIFICATION SERVICES FOR SUBSTANCE ABUSE TREATMENT (04/10/17) GROUP RETAIL ASSOCIATE FOR SUBSTANCE ABUSE TREATMENT, PSYCHOEDUCATION (04/10/17) GROUP PSYCHOTHERAPY (04/10/16) INDIV PSYCHOTHERAPY FOR SUBSTANCE ABUSE TREATMENT, SUPPORT (04/10/17) INDIVIDUAL PSYCHOTHERAPY, BEHAVIORAL (12/20/15) INDIVIDUAL PSYCHOTHERAPY, SUPPORTIVE (04/10/16) MEDICATION MANAGEMENT (04/10/16) Family History: States: Unknown Family Hx - Social History Hx Alcohol Use: No Hx Substance Use: Yes - Immunization History Hx Tetanus Toxoid Vaccination: No Hx Influenza Vaccination: Yes Hx Pneumococcal Vaccination: No Review Of Systems Constitutional: Negative for: Fever, Chills Cardiovascular: Negative for: Chest Pain, Palpitations Respiratory: Negative for: Cough, Shortness of Breath Gastrointestinal: Negative for: Nausea, Vomiting Physical Exam - Physical Exam Appears: Non-toxic Skin: Normal Color, Warm, Dry Head: Atraumatic, Normacephalic Eye(s): bilateral: Normal Inspection Oral Mucosa: Moist Chest: Symmetrical, No Tenderness Cardiovascular: Rhythm Regular Respiratory: Normal Breath Sounds, No Rales, No Rhonchi, No Wheezing Gastrointestinal/Abdominal: Soft, No Tenderness Neurological/Psych: Oriented x3, Normal Speech ED Course And Treatment O2 Sat by Pulse Oximetry: 96 (room air) Pulse Ox Interpretation: Normal Progress Note: Case discussed with welfare worker who states no detox beds are available. Disposition Counseled Patient/Family Regarding: Diagnosis - Disposition Referrals: [facility] [Outside] Disposition: HOME/ ROUTINE Disposition Time: 04:29 Condition: STABLE Instructions: Cocaine Use Disorder, Alcohol Abuse and Alcoholism (DC) Forms: [facility] (Slovenian) - POA Present On Arrival: None - Clinical Impression Clinical Impression: Substance abuse - Scribe Statement The provider has reviewed the documentation as recorded by the Scribe Jl Márquez All medical record entries made by the Scribe were at my direction and personally dictated by me. I have reviewed the chart and agree that the record accurately reflects my personal performance of the history, physical exam, medical decision making, and the department course for this patient. I have also personally directed, reviewed, and agree with the discharge instructions and disposition.
== END 2017-07-20 04:53 | disposition home or self-care (01) ==
LOC: C.ER 04:18
DX: F19.10 Other psychoactive substance abuse, uncomplicated (principal)

== ENCOUNTER 2017-12-07 00:26 | Emergency (ER) | payer MEDICAID ==
[2017-12-07 00:36] VITALS: RESP 18
[2017-12-07] MEDS ORDERED: Naproxen 550 mg Tab PO STA (01:05)
[2017-12-07] MEDS ORDERED: Amoxicillin-Clav 875-125 mg Tab PO STA (01:05)
[2017-12-07] MEDS ORDERED: Amoxicillin-Clav 875-125 mg Tab PO ONE (01:11)
[2017-12-07] MEDS ORDERED: Naproxen 550 mg Tab PO ONE (01:11)
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
[2017-12-07 02:14] VITALS: BP 124/71; PULSE 74; TEMP 98.2; O2SAT 99
--- NOTE | 2017-12-07 16:55 | RAD ---
Date of service: 12/07/2017 PROCEDURE: Radiographs of the chest and bilateral ribs HISTORY: chest pain after injury r/o fx COMPARISON: None available. TECHNIQUE: Frontal radiograph of the chest and multiple oblique radiographs of the bilateral ribs were obtained. FINDINGS: RIGHT RIBS: No fracture or focal lesion visualized. LEFT RIBS: No fracture or focal lesion visualized. LUNGS: Clear. PLEURA: No pneumothorax or pleural fluid. CARDIOVASCULAR: Normal sized heart. No pulmonary vascular congestion. OTHER FINDINGS: None. IMPRESSION: Unremarkable radiographs of the chest and bilateral ribs. No rib fracture.
--- NOTE | 2017-12-09 21:02 | CARD ---
APPROVED REPORT Date of service: 12/07/2017 EKG Measurement Heart [id number] <Conclusion> Normal sinus rhythm Left posterior fascicular block Abnormal ECG
== END 2017-12-07 02:13 | disposition home or self-care (01) ==
LOC: C.ER 00:26 → SUPCPDRO 00:26 → C.ER 02:13
DX: S20.212A Contusion of left front wall of thorax, initial encounter (principal); S20.312A Abrasion of left front wall of thorax, initial encounter; Y08.89XA Assault by other specified means, initial encounter

== ENCOUNTER 2017-12-17 22:27 | Emergency (ER) | payer MEDICAID ==
[2017-12-17 22:47] VITALS: BP 136/79; PULSE 74; RESP 19; O2SAT 96
--- NOTE | 2017-12-17 22:50 | C.PDOC ---
History Of Present Illness patient states he wants detox from heroin., Last used night. Explained that there are no detox beds .Denies any suicidal or homicidal ideation Time Seen by Provider: 12/17/17 22:50 Chief Complaint (Nursing): Substance Abuse Past Medical History Vital Signs: Last Vital Signs Temp 97.5 F L 12/17/17 22:44 Pulse 74 12/17/17 22:44 Resp 19 12/17/17 22:44 BP 136/79 12/17/17 22:44 Pulse Ox 96 12/17/17 22:44 - Medical History PMH: Anxiety, Back Problems, Depression Denies: Diabetes, Hepatitis, HIV, HTN, Chronic Kidney Disease, Seizures, Sexually Transmitted Disease - [facility] Procedures DETOXIFICATION SERVICES FOR SUBSTANCE ABUSE TREATMENT (04/10/17) GROUP NEEDLE MOLDER FOR SUBSTANCE ABUSE TREATMENT, PSYCHOEDUCATION (04/10/17) GROUP PSYCHOTHERAPY (04/10/16) INDIV PSYCHOTHERAPY FOR SUBSTANCE ABUSE TREATMENT, SUPPORT (04/10/17) INDIVIDUAL PSYCHOTHERAPY, BEHAVIORAL (12/20/15) INDIVIDUAL PSYCHOTHERAPY, SUPPORTIVE (04/10/16) MEDICATION MANAGEMENT (04/10/16) Family History: States: Unknown Family Hx - Social History Hx Alcohol Use: No Hx Substance Use: Yes - Immunization History Hx Tetanus Toxoid Vaccination: No Hx Influenza Vaccination: No Hx Pneumococcal Vaccination: No ED Course And Treatment O2 Sat by Pulse Oximetry: 96 Pulse Ox Interpretation: Normal Progress Note: pt refuses to be examined since there are no detox beds. Disposition Counseled Patient/Family Regarding: Studies Performed, Diagnosis, Need For Followup - Disposition Disposition: HOME/ ROUTINE Disposition Time: 22:50 Condition: FAIR Additional Instructions: Please return if symptoms recur Instructions: Drug Abuse and Drug Addiction (DC) Forms: [facility] (Trinidadian) - Clinical Impression Clinical Impression: Heroin abuse
[2017-12-17 23:43] VITALS: TEMP 97.9
== END 2017-12-17 23:43 | disposition home or self-care (01) ==
LOC: C.ER 22:27
DX: F11.10 Opioid abuse, uncomplicated (principal)

== ENCOUNTER 2018-01-18 22:55 | Emergency (ER) | payer MEDICAID ==
[2018-01-18 23:06] VITALS: O2SAT 98
--- NOTE | 2018-01-19 00:18 | C.PDOC ---
History Of Present Illness 37 year old male is brought to the ED by ambulance for evaluation of vague body discomfort. Patient has history of alcohol and heroin abuse. He admits to persistent alcohol and heroin abuse. Patient denies fever, chills, suicidal/homicidal ideation. Time Seen by Provider: 01/19/18 00:08 Chief Complaint (Nursing): Flu-like Symptoms History Per: Patient, EMS History/Exam Limitations: no limitations Onset/Duration Of Symptoms: Hrs Current Symptoms Are (Timing): Still Present Suicide/Self Injury Attempted (Context): None Modifying Factor(s): Alcohol, Other (heroin ) Associated Symptoms: denies: Suicidal Thoughts, Suicidal Plan Involuntary Hold By: None Recent travel outside of the [place]: No Additional History Per: Patient Past Medical History Reviewed: Historical Data, Nursing Documentation, Vital Signs Vital Signs: Last Vital Signs Temp 98.8 F 01/18/18 23:03 Pulse 74 01/18/18 23:03 Resp 20 01/18/18 23:03 BP 114/74 01/18/18 23:03 Pulse Ox 98 01/18/18 23:03 - Medical History PMH: Anxiety, Back Problems, Depression Denies: Diabetes, Hepatitis, HIV, HTN, Chronic Kidney Disease, Seizures, Sexually Transmitted Disease Surgical History: No Surg Hx - [facility] Procedures DETOXIFICATION SERVICES FOR SUBSTANCE ABUSE TREATMENT (04/10/17) GROUP CORPORATE RELATIONS DIRECTOR FOR SUBSTANCE ABUSE TREATMENT, PSYCHOEDUCATION (04/10/17) GROUP PSYCHOTHERAPY (04/10/16) INDIV PSYCHOTHERAPY FOR SUBSTANCE ABUSE TREATMENT, SUPPORT (04/10/17) INDIVIDUAL PSYCHOTHERAPY, BEHAVIORAL (12/20/15) INDIVIDUAL PSYCHOTHERAPY, SUPPORTIVE (04/10/16) MEDICATION MANAGEMENT (04/10/16) Family History: States: Unknown Family Hx - Social History Hx Alcohol Use: Yes Hx Substance Use: Yes - Immunization History Hx Tetanus Toxoid Vaccination: No Hx Influenza Vaccination: No Hx Pneumococcal Vaccination: No Review Of Systems Constitutional: Negative for: Fever, Chills Musculoskeletal: Positive for: Other (vague body discomfort) Psych: Positive for: Other (alcohol and heroin abuse ) Physical Exam - Physical Exam Appears: Non-toxic, No Acute Distress, Other (patient asleep upon initial evaluation ) Skin: Normal Color, Warm, Dry, Other (track he to bilateral antecubital areas. no abscess) Head: Atraumatic, Normacephalic Eye(s): bilateral: Normal Inspection Oral Mucosa: Moist Neck: Supple Chest: Symmetrical, No Deformity, No Tenderness Cardiovascular: Rhythm Regular, No Murmur Respiratory: Normal Breath Sounds, No Rales, No Rhonchi, No Wheezing Extremity: Normal ROM, Capillary Refill (less than 2 seconds ) Neurological/Psych: Oriented x3, Normal Speech, Normal Cognition ED Course And Treatment O2 Sat by Pulse Oximetry: 98 (on RA) Pulse Ox Interpretation: Normal Progress Note: Motrin PO given. Medical Decision Making Medical Decision Making: continued alcohol and heroine use no detox available tonight vague chest discomforts but not now clinically sober and appropriate for d/c. Disposition Doctor Will See Patient In The: Office Counseled Patient/Family Regarding: Studies Performed, Diagnosis - Disposition Referrals: Alcoholics Anonymous [Outside] [facility] [Outside] [facility] [Outside] [facility] [Outside] [facility] [Outside] [facility] [Outside] Disposition: HOME/ ROUTINE Disposition Time: 00:18 Condition: GOOD Additional Instructions: tylenol/motrin for your vague aches and pains over the counter cold medicines as needed avoid heroine and alcohol abuse Seek counseling Seek Detox- make appt or call our [facility] to consider detox as a prescreened patient. Instructions: Viral Syndrome (DC), Polysubstance Abuse, Polysubstance Abuse (DC) Forms: [facility] (Kuwaiti) - Clinical Impression Clinical Impression: Polysubstance abuse - Scribe Statement The provider has reviewed the documentation as recorded by the Scribe (Skye Porras) Provider Attestation: All medical record entries made by the Scribe were at my direction and personally dictated by me. I have reviewed the chart and agree that the record accurately reflects my personal performance of the history, physical exam, medical decision making, and the department course for this patient. I have also personally directed, reviewed, and agree with the discharge instructions and disposition.
[2018-01-19 00:34] VITALS: BP 126/80; PULSE 94; RESP 19; TEMP 98.6
== END 2018-01-19 01:02 | disposition home or self-care (01) ==
LOC: C.ER 22:55
DX: F19.10 Other psychoactive substance abuse, uncomplicated (principal)

== ENCOUNTER 2018-01-29 19:47 | Inpatient (IN) | payer MEDICAID ==
--- NOTE | 2018-01-29 20:42 | C.PDOC ---
History Of Present Illness Patient presents to the ER stating he is depressed and hearing voices telling him to hurt himself by jumping off a building. Denies suicide plan or homicidal ideation. Time Seen by Provider: 01/29/18 20:41 Chief Complaint (Nursing): Psychiatric Evaluation History Per: Patient History/Exam Limitations: no limitations Onset/Duration Of Symptoms: Days Current Symptoms Are (Timing): Still Present Suicide/Self Injury Attempted (Context): None Modifying Factor(s): None Severity: None Pain Scale Rating Of: 0 Associated Symptoms: Depression, Suicidal Thoughts. denies: Suicidal Plan, Other (Homicidal ideation) Involuntary Hold By: None Recent travel outside of the [place]: No Additional History Per: Patient Past Medical History Reviewed: Historical Data, Nursing Documentation, Vital Signs Vital Signs: Last Vital Signs Temp 98.1 F 01/29/18 20:23 Pulse 92 H 01/29/18 20:23 Resp 16 01/29/18 20:23 BP 127/70 01/29/18 20:23 Pulse Ox 98 01/29/18 20:23 - Medical History PMH: Anxiety, Back Problems, Depression Denies: Diabetes, Hepatitis, HIV, HTN, Chronic Kidney Disease, Seizures, Sexually Transmitted Disease - [facility] Procedures DETOXIFICATION SERVICES FOR SUBSTANCE ABUSE TREATMENT (04/10/17) GROUP DIGITAL ACCOUNT DIRECTOR FOR SUBSTANCE ABUSE TREATMENT, PSYCHOEDUCATION (04/10/17) GROUP PSYCHOTHERAPY (04/10/16) INDIV PSYCHOTHERAPY FOR SUBSTANCE ABUSE TREATMENT, SUPPORT (04/10/17) INDIVIDUAL PSYCHOTHERAPY, BEHAVIORAL (12/20/15) INDIVIDUAL PSYCHOTHERAPY, SUPPORTIVE (04/10/16) MEDICATION MANAGEMENT (04/10/16) Family History: States: No Known Family Hx - Social History Hx Alcohol Use: Yes Hx Substance Use: Yes (patient denies) - Immunization History Hx Tetanus Toxoid Vaccination: No Hx Influenza Vaccination: No Hx Pneumococcal Vaccination: No Review Of Systems Constitutional: Negative for: Fever, Chills Cardiovascular: Negative for: Chest Pain, Palpitations Respiratory: Negative for: Cough, Shortness of Breath Gastrointestinal: Negative for: Nausea, Vomiting Psych: Positive for: Depression, Suicidal ideation (No plan), Other (Hearing voices, No homicidal ideation) Physical Exam - Physical Exam Appears: Non-toxic Skin: Warm, Dry Head: Normacephalic Eye(s): bilateral: Normal Inspection Oral Mucosa: Moist Neck: Supple Chest: Symmetrical, No Tenderness Cardiovascular: Rhythm Regular Respiratory: No Rales, No Rhonchi, No Wheezing Gastrointestinal/Abdominal: Soft, No Tenderness Back: Normal Inspection Extremity: Normal ROM Neurological/Psych: Oriented x3 Gait: Steady ED Course And Treatment - Laboratory Results Result Diagrams: 01/29/18 21:00 01/29/18 21:00 O2 Sat by Pulse Oximetry: 98 (Room air) Pulse Ox Interpretation: Normal Progress Note: Blood work and urinalysis ordered. Crisis notified. Disposition Discussed With DrWild: Zafar Torres Comment: accepted the pt onhis service and took over the care at 5:03 AM Doctor Will See Patient In The: Hospital Counseled Patient/Family Regarding: Studies Performed, Diagnosis - Disposition Disposition: HOSPITALIZED Disposition Time: 20:42 Condition: FAIR Forms: [facility] (Comoran) - POA Present On Arrival: Poor Glycemic Control - Clinical Impression Clinical Impression: Schizoaffective disorder, Opioid use disorder - Scribe Statement The provider has reviewed the documentation as recorded by the Scribe Provider Attestation: Jl Márquez All medical record entries made by the Scribe were at my direction and personally dictated by me. I have reviewed the chart and agree that the record accurately reflects my personal performance of the history, physical exam, medical decision making, and the department course for this patient. I have also personally directed, reviewed, and agree with the discharge instructions and disposition. Decision To Admit - Pt Status Changed To: Hospital Disposition Of: Inpatient - Admit Certification Admit to Inpatient:: After my assessment, the patient will require hospitalization for at least two midnights. This is because of the severity of symptoms shown, intensity of services needed, and/or the medical risk in this patient being treated as an outpatient. - InPatient: Physician Admission Certification: I certify that this patient requires 2 or more midnights of care for the following reason:: After my assessment, the patient will require hospitalization for at least two midnights. This is because of the severity of symptoms shown, intensity of services needed, and/or the medical risk in this patient being treated as an outpatient. - . Bed Request Type: Psychiatry Admitting Physician: Zafar Torres Patient Diagnosis: Schizoaffective disorder, Opioid use disorder
[2018-01-29 21:10] LABS: BASO # 0.1 K/uL (0.0-0.2); BASO % 0.5 % (0.0-2.0); EOS # 0.1 K/uL (0.0-0.7); EOS % 0.4 % (0.0-4.0); HEMOGLOBIN 12.7 g/dL (12.0-18.0); LYMPH # 2.6 K/uL (1.0-4.3); LYMPH % 18.2 % (20.0-40.0); MEAN CELL VOLUME 88.7 fL (80.0-94.0); MEAN CORPUSCULAR HEMOGLOBIN 29.8 pg (27.0-31.0); MEAN CORPUSCULAR HGB CONC 33.7 g/dL (33.0-37.0); MEAN PLATELET VOLUME 7.4 fL (7.2-11.7); MONO # 1.4 K/uL (0.0-0.8); MONO % 9.7 % (0.0-10.0); NEUT % 71.2 % (50.0-75.0); RBC 4.26 Mil/uL (4.40-5.90); RED CELL DISTRIBUTION WIDTH 13.6 % (11.5-14.5); WHITE BLOOD COUNT 14.1 K/uL (4.8-10.8)
[2018-01-29 21:48] LABS: ALB/GLOB RATIO 1.3 (1.0-2.1); ALT/SGPT 23 U/L (21-72); AST/SGOT 29 U/L (17-59); BLOOD UREA NITROGEN 10 mg/dL (9-20); CALCIUM 8.7 mg/dl (8.6-10.4); GFR NON-AFRICAN AMERICAN > 60
[2018-01-29 21:59] LABS: URINE BACTERIA RARE (<OCC); URINE BILIRUBIN NEGATIVE (NEGATIVE); URINE BLOOD 1+ (NEGATIVE); URINE CLARITY Clear (Clear); URINE COLOR Yellow (YELLOW); URINE GLUCOSE (UA) NORMAL (Normal); URINE LEUKOCYTE ESTERASE NEG Leu/uL (Negative); URINE PROTEIN NEGATIVE (NEGATIVE); URINE UROBILINOGEN NORMAL mg/dL (0.2-1.0)
[2018-01-29 22:05] LABS: BARBITURATES, UR NEGATIVE (NEGATIVE); BENZODIAZEPINES, UR NEGATIVE (NEGATIVE); OPIATES, UR NEGATIVE (NEGATIVE); PHENCYCLIDINE, UR NEGATIVE (NEGATIVE)
--- NOTE | 2018-01-30 06:38 | PCM.BM ---
<Flor Lanier - Last Filed: 01/30/18 06:35> Treatment Plan Problems - Problems identified on initial assessmt Depression Date Initiated: 01/30/18 Time Initiated: 06:00 Assessment reference: NA Status: Active Auditive Hallucination Date Initiated: 01/30/18 Time Initiated: 06:00 Assessment reference: NA Status: Active Treatment assets and liabiliti Patient Assests: cooperative, insightful, motivated, self-reliant, ADL independent, physically healthy, negotiates basic needs Patient Liabilities: financial problems (no working), poor support system (homeless), relationship conflicts (not seem his 7 y/o daugther) - Milieu Protocol Maintain good personal hygiene: daily Encourage regular showers, daily Remind patient to perform daily oral care, daily Assist patient to perform ADL's Maintain personal safety: every shift Educate patient to report safety concerns to staff, every shift Monitor environment for contraband/sharps Medication safety: Monitor for expected outcome, potential side effects: every shift, Assess barriers to learning: every shift, Assess readiness for medication education: every shift <Yordan Mondragon - Last Filed: 01/31/18 12:10> - Diagnosis (1) Major depressive disorder, recurrent, severe with psychotic features Status: Acute Interventions: 01/31/18 12:10 * Assess/adjust medications daily and /or as needed * See patient on an individual basis 7x/week to assess status of hallucinations * Discuss risks, benefits, side effects and alternatives of medications (2) Cocaine use disorder, severe, dependence Status: Acute Interventions: 01/31/18 12:10 * Assess 7x/week regarding severity of withdrawal * Educate regarding risks, benefits, side effects and alternatives of medications * Use Motivational Interviewing for abstinence * Use CBT for relapse prevention * Medication management for withdrawal symptoms * Encourage medication assisted treatment (3) Opioid use disorder, severe, dependence Status: Acute Interventions: 01/31/18 12:10 * Assess 7x/week regarding severity of withdrawal * Educate regarding risks, benefits, side effects and alternatives of medication s * Use Motivational Interviewing for abstinence * Use CBT for relapse prevention * Medication management for withdrawal symptoms * Encourage medication assisted treatment <Kaye Dinero - Last Filed: 01/31/18 12:17> Family Contact Family involvement: Patient does not wish Family/SO involvement Family contact: Patient declines to allow family contact at present - Goals for Treatment Patient goals for treatment: "I am not sure where I want to go from treatment." Discharge/Continuing Care - Education Needs Education Needs: Patient Medication, Patient Diagnosis/Disease Process, Patient Coping Skills, Patient Placement options, Patient Community resources - Discharge Discharge Criteria: Free of Suicidal thoughts, Normal sleep pattern, Ability to care for self, Reduction of target symptoms Discharge to:: Home - Treatment Team Participation Discussed with Family/SO: No Was Patient/Family/SO present at Treatment Team Meeting: Yes
--- NOTE | 2018-01-30 23:21 | PCM.PSYCH ---
Initial Psychiatric Evaluation - Initial Psychiatric Evaluation Type of Admission: Voluntary Legal Status: Capacity Chief Complaint (in patient's own words): I'm depressed and hearing voices. History of Present Illness and Precipitating Events: Patient is a 37 years old, single, unemployed, male with history of depression, cocaine, opioid and cannabis use was admitted due to worsening of symptoms of depression and command type auditory hallucinations. Feeling depressed, no problem with sleep and appetite, lost 10 pounds in 1 week. No suicidal ideation. Patient has command type auditory hallucinations, reported voices are telling him different things like jump off of for roof of from height. Also believes people are following him. Patient also believes that sometime TV and radio is talking about him. Patient has history of cocaine, opioid and cannabis use. Patient's urine drug screen was positive for amphetamine. Reported taking Adderall for last 6 months prescribed by psychiatrist. Patient is seeing a psychiatrist once a month. Patient also smokes 7 cigarettes per day, refused to take nicotine patch. Patient was born in [place], has 11th grade of education. Not working for last 1 month. 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 Never and has one 7 years old daughter. Lives with mother. Patient's height is 6 feet 1 inch and weight is 170 pounds. Current Medications: Active Medications Generic Name Dose Route Start Last Admin Trade Name Freq PRN Reason Stop Dose Admin Aripiprazole 15 mg 01/30/18 14:30 01/30/18 15:29 Abilify PO 15 mg DAILY ANGIE Administration Escitalopram Oxalate 10 mg 01/30/18 10:00 01/30/18 11:19 Lexapro PO 10 mg DAILY ANGIE Administration Gabapentin 300 mg 01/30/18 10:00 01/30/18 17:09 Neurontin PO Not Given BID ANGIE Hydroxyzine HCl 50 mg 01/30/18 08:52 Atarax PO Q6H PRN Anxiety Ibuprofen 600 mg 01/30/18 08:52 Motrin Tab PO Q6H PRN Pain, moderate (4-7) Pneumococcal Polyvalent Vaccine 0.5 ml 02/02/18 10:00 Pneumovax 23 Vaccine IM 02/02/18 10:01 .ONCE ONE Trazodone HCl 100 mg 01/30/18 08:52 Desyrel PO HS PRN Insomnia Past Psychiatric History - Past Psychiatric History Previous Treatment History: Intensive Outpatient History of Abuse: None reported History of ETOH/Drug Use: See HPI History of Family Illness: None reported Pertinent Medical Hx (Current Medical&Sleep Prob, Allergies): Allergies Allergy/AdvReac Type Severity Reaction Status Date / Time No Known Allergies Allergy Verified 01/29/18 20:25 Citalopram Hydrobromide [Celexa] 20 mg PO DAILY 01/29/18 Review of Systems - Psychiatric Psychiatric: As Per HPI, Depression, Hallucinations, Hopelessness, Paranoia Mental Status Examination - Personal Presentation Personal Presentation: Looks stated age - Affect Affect: Depressed - Motor Activity Motor Activity: Calm - Reliability in Providing Information Reliability in Providing Information: Fair - Speech Speech: Organized - Mood Mood: Depressed - Formal Thought Process Formal Thought Process: No Impairment - Hallucinations/Delusions Hallucinations: Other (None reported) Delusions: Other - Obsessions/Compulsions Obsessions: None Compulsions: None - Cognitive Functions Orientation: Person, Place, Situation, Time Sensorium: Alert Attention/Concentration: Attentive Abstract Thinking: [place] Estimate of Intelligence: Average Judgement: Intact, as evidence by: Insight regarding need for hospitalization Memory: Recent intact, as evidence by: Ability to recall events of the day, Remote intact, as evidenced by: Ability to recall historical events - Risk Risk: Withdrawal, Diminished functioning - Strength & Assets Inventory Strength & Assets Inventory: Family support, Cooperative - Limitations Limitations: Other (Lives with mother) DSM 5 DX - DSM 5 DSM 5 Diagnosis: Major depressive disorder recurrent severe with psychotic features. Cocaine use disorder severe. Opioid use disorder severe - Recommended/Plan of Treatment Treatment Recommendations and Plan of Treatment: Patient education. Supportive therapy. CBT for relapse prevention. RI for abstinence. We will start ecitalopram and Abilify. Other when necessary medications. Patient wants to go back to his psychiatrist for follow-up care after discharge from the hospital. Projected ELOS: 8-10 days - Smoking Cessation Smoking Cessation Initiated: No Reason for not providing: Patient refused
--- NOTE | 2018-01-31 16:48 | PCM.PYCHPN ---
Psychiatric Progress Note - Psychiatric Progress Note Patient Chief Complaint: I'm depressed and hearing voices. Problems Identified/Issues Discussed: Patient seen, chart reviewed, case discussed with the staff. Issues related to illness and treatment were discussed with the patient and st aff. Reported compliant with treatment with no adverse affects. Tolerating treatment very well. Patient reported feeling little better with the treatment, slept better, no suicide. Patient was calm and cooperative. Awake, alert and oriented 3. Mood reported as okay. Affect appropriate. Aftercare discussed with the patient. At the time of evaluation, patient had no delusions, no auditory or visual hallucinations, no suicidal ideations or homicidal ideations. Medical Problems: None reported Diagnostic Results: Reviewed DSM 5 Symptoms Update: Some improvement with treatment Medication Change: No Medical Record Reviewed: Yes Mental Status Examination - Cognitive Function Orientation: Person, Place, Situation, Time Memory: Intact Attention: WNL Concentration: WNL Association: [facility] Fund of Knowledge: [facility] Decription of patient's judgement and insights: Fair - Mood Mood: Depressed (Less than before) - Affect Affect: Other (Appropriate) - Speech Speech: Appropriate - Formal Thought Process Formal Thought Process: No Impairment Psychotic Thoughts and Behaviors: None - Suicidal Ideation Suicidal Ideation: No - Homicidal Ideation Homicidal Ideation: No Goal/Treatment Plan - Goal/Treatment Plan Need for Continued Stay: Remain at risks for inpatient hospitalization, Discharge may exacerbated symptoms, Severe functional impairment Progress Toward Problem(s) and Goals/Treatment Plan: Patient education. Supportive therapy. CBT for relapse prevention. [place] for abstinence. Continue treatment as before. Patient wants to go back to his psychiatrist for follow-up care after discharge from the hospital. Estimated Date of D/C: 02/06/18 - Smoking Cessation Smoking Cessation Initiated: No
[2018-02-01] MEDS: Benzocaine/Menthol (Cepacol) Lozenge MT PRN ×2 (09:32→15:36)
--- NOTE | 2018-02-01 20:25 | PCM.PYCHPN ---
Psychiatric Progress Note - Psychiatric Progress Note Patient seen today, length of contact: 15 minutes Patient Chief Complaint: I'm feeling better. Problems Identified/Issues Discussed: Patient seen, chart reviewed, case discussed with the staff. Issues related to illness and treatment were discussed with the patient and staff. Reported compliant with treatment with no adverse affects. Tolerating treatment very well. Patient reported feeling better with the treatment, slept better, no suicide. Patient was calm and cooperative. Awake, alert and oriented 3. Mood reported as okay. Affect appropriate. Aftercare discussed with the patient. At the time of evaluation, patient had no delusions, no auditory or visual hallucinations, no suicidal ideations or homicidal ideations. Medical Problems: None reported Diagnostic Results: Reviewed DSM 5 Symptoms Update: Some improvement with treatment. Medication Change: No Medical Record Reviewed: Yes Mental Status Examination - Cognitive Function Orientation: Person, Place, Situation, Time Memory: Intact Attention: WNL Concentration: WNL Association: [facility] Fund of Knowledge: [facility] Decription of patient's judgement and insights: Fair - Mood Mood: Depressed (Much less than before) - Affect Affect: Other (Appropriate) - Speech Speech: Appropriate - Formal Thought Process Formal Thought Process: No Impairment Psychotic Thoughts and Behaviors: None - Suicidal Ideation Suicidal Ideation: No - Homicidal Ideation Homicidal Ideation: No Goal/Treatment Plan - Goal/Treatment Plan Need for Continued Stay: Remain at risks for inpatient hospitalization, Discharge may exacerbated symptoms, Severe functional impairment Progress Toward Problem(s) and Goals/Treatment Plan: Patient education. Supportive therapy. CBT for relapse prevention. [place] for abstinence. Continue treatment as before. Patient wants to go back to his psychiatrist for follow-up care after discharge from the hospital. Estimated Date of D/C: 02/06/18 - Smoking Cessation Smoking Cessation Initiated: No
[2018-02-02 06:27] VITALS: O2SAT 93
[2018-02-02 08:15] LABS: HEPATITIS B SURFACE AG Negative (NEGATIVE)
[2018-02-02 08:21] LABS: HEPATITIS A IGM NEGATIVE (NEGATIVE); HEPATITIS B CORE AB NEGATIVE (NEGATIVE)
[2018-02-02 08:32] LABS: HEPATITIS C ANTIBODY NEGATIVE (NEGATIVE)
[2018-02-02] MEDS ORDERED: Pneumococcal 23-Valent Vaccine IM ONE (10:00)
[2018-02-02] MEDS: Benzocaine/Menthol (Cepacol) Lozenge MT PRN (11:16)
--- NOTE | 2018-02-02 15:57 | PCM.PYCHPN ---
Psychiatric Progress Note - Psychiatric Progress Note Patient seen today, length of contact: 15 minutes Patient Chief Complaint: I'm feeling much better. Problems Identified/Issues Discussed: Patient seen, chart reviewed, case discussed with the staff. Issues related to illness and treatment were discussed with the patient and staff. Reported compliant with treatment with no adverse affects. Tolerating treatment very well. Patient reported feeling much better with the treatment, slept better, no suicide. Patient was calm and cooperative. Awake, alert and oriented 3. Mood reported as okay. Affect appropriate. Aftercare discussed with the patient. At the time of evaluation, patient had no delusions, no auditory or visual hallucinations, no suicidal ideations or homicidal ideations. Medical Problems: None reported Diagnostic Results: Reviewed DSM 5 Symptoms Update: Improvement with treatment Medication Change: No Medical Record Reviewed: Yes Mental Status Examination - Cognitive Function Orientation: Person, Place, Situation, Time Memory: Intact Attention: WNL Concentration: WNL Association: [facility] Fund of Knowledge: [facility] Decription of patient's judgement and insights: Fair - Mood Mood: Depressed (Much less than before) - Affect Affect: Other (Appropriate) - Speech Speech: Appropriate - Formal Thought Process Formal Thought Process: No Impairment Psychotic Thoughts and Behaviors: None - Suicidal Ideation Suicidal Ideation: No - Homicidal Ideation Homicidal Ideation: No Goal/Treatment Plan - Goal/Treatment Plan Need for Continued Stay: Remain at risks for inpatient hospitalization, Discharge may exacerbated symptoms, Severe functional impairment Progress Toward Problem(s) and Goals/Treatment Plan: Patient education. Supportive therapy. CBT for relapse prevention. [place] for abstinence. Continue treatment as before. Patient wants to go back to his psychiatrist for follow-up care after discharge from the hospital. Estimated Date of D/C: 02/06/18 - Smoking Cessation Smoking Cessation Initiated: No
[2018-02-03] MEDS: Benzocaine/Menthol (Cepacol) Lozenge MT PRN ×2 (08:52→14:40)
--- NOTE | 2018-02-03 09:50 | PCM.PYCHPN ---
Psychiatric Progress Note - Psychiatric Progress Note Patient seen today, length of contact: 15 minutes Patient Chief Complaint: I am seeing goblins.' Problems Identified/Issues Discussed: Patient was seen and evaluated, chart reviewed and discussed with the staff Patient will remain paranoid, delusional and bizarre. Per staff he remained hyper, irritable and manic. He reports racing thoughts or flight of ideas, poor concentration, poor sleep and poor appetite. He reports of seeing goblins and hearing voices. He is still back and forth in the hallways. He is taking medications and denies any side effects. Symptoms are gradually improving, however he needs to stay longer for further stabilization. Supportive therapy was given Medication Change: Yes Medical Record Reviewed: Yes Mental Status Examination - Cognitive Function Orientation: Person, Place, Situation, Time Memory: Intact Attention: Poor Concentration: Poor Association: Loose Fund of Knowledge: Poor - Mood Mood: Euphoric - Affect Affect: Broad - Speech Speech: Loud, Pressured - Formal Thought Process Formal Thought Process: Hallucinations, Delusions, Paranoia, Loosening of associations - Suicidal Ideation Suicidal Ideation: No - Homicidal Ideation Homicidal Ideation: No Goal/Treatment Plan - Goal/Treatment Plan Need for Continued Stay: Remain at risks for inpatient hospitalization, Discharge may exacerbated symptoms, Severe functional impairment Progress Toward Problem(s) and Goals/Treatment Plan: Bipolar manic severe with psychotic features. Cocaine use disorder severe. Opioid use disorder severe Patient education. Supportive therapy. CBT for relapse prevention. [place] for abstinence Escitalopram Marsha Estimated Date of D/C: 02/06/18 - Smoking Cessation Smoking Cessation Initiated: No
--- NOTE | 2018-02-04 10:49 | PCM.PYCHPN ---
Psychiatric Progress Note - Psychiatric Progress Note Patient seen today, length of contact: 15 minutes Patient Chief Complaint: I am seeing goblins.' Problems Identified/Issues Discussed: Patient was seen and evaluated, chart reviewed and discussed with the staff Patient will remain paranoid, delusional and bizarre. Per staff he remained hyper, irritable and manic. He reports racing thoughts or flight of ideas, poor concentration, poor sleep and poor appetite. He reports of seeing goblins and hearing voices. He is still back and forth in the hallways. He is taking medications and denies any side effects. Symptoms are gradually improving, however he needs to stay longer for further stabilization. Supportive therapy was given Medication Change: Yes Medical Record Reviewed: Yes Mental Status Examination - Cognitive Function Orientation: Person, Place, Situation, Time Memory: Intact Attention: Poor Concentration: Poor Association: Loose Fund of Knowledge: Poor - Mood Mood: Euphoric - Affect Affect: Broad - Speech Speech: Loud, Pressured - Formal Thought Process Formal Thought Process: Hallucinations, Delusions, Paranoia, Loosening of associations - Suicidal Ideation Suicidal Ideation: No - Homicidal Ideation Homicidal Ideation: No Goal/Treatment Plan - Goal/Treatment Plan Need for Continued Stay: Remain at risks for inpatient hospitalization, Discharge may exacerbated symptoms, Severe functional impairment Progress Toward Problem(s) and Goals/Treatment Plan: Bipolar manic severe with psychotic features. Cocaine use disorder severe. Opioid use disorder severe Patient education. Supportive therapy. CBT for relapse prevention. [place] for abstinence [place] Escitalopram Increase Abilify 30 mg Prolixin 5 mg PO BID Trazodone 100 mg p.o. daily Neurontin 300 mg p.o. twice daily Estimated Date of D/C: 02/06/18
[2018-02-04] MEDS: Benzocaine/Menthol (Cepacol) Lozenge MT PRN (12:34)
[2018-02-05] MEDS: Benzocaine/Menthol (Cepacol) Lozenge MT PRN (17:45)
[2018-02-06] MEDS: Benzocaine/Menthol (Cepacol) Lozenge MT PRN (14:32)
--- NOTE | 2018-02-06 16:16 | PCM.PYCHPN ---
Psychiatric Progress Note - Psychiatric Progress Note Patient seen today, length of contact: 15 minutes Patient Chief Complaint: There is a someone in my room.' Problems Identified/Issues Discussed: Patient was seen and evaluated, chart reviewed and discussed with the staff. Staff reports that he appears somewhat more organized than before but he remained internally preoccupied. Per staff he remained hyper, irritable and manic. He reports racing thoughts or flight of ideas, poor concentration, poor sleep and poor appetite. He reports of seeing people and shadows and hearing voices. He is still back and forth in the hallways. He is taking medications and denies any side effects. Symptoms are gradually improving, however he needs to stay longer for further stabilization. Supportive therapy was given Medication Change: Yes Medical Record Reviewed: Yes Mental Status Examination - Cognitive Function Orientation: Person, Place, Situation, Time Memory: Intact Attention: Poor Concentration: Poor Association: Loose Fund of Knowledge: Poor - Mood Mood: Euphoric - Affect Affect: Broad - Speech Speech: Loud, Pressured - Formal Thought Process Formal Thought Process: Hallucinations, Delusions, Paranoia, Loosening of associations - Suicidal Ideation Suicidal Ideation: No - Homicidal Ideation Homicidal Ideation: No Goal/Treatment Plan - Goal/Treatment Plan Need for Continued Stay: Remain at risks for inpatient hospitalization, Discharge may exacerbated symptoms, Severe functional impairment Progress Toward Problem(s) and Goals/Treatment Plan: Bipolar manic severe with psychotic features. Cocaine use disorder severe. Opioid use disorder severe Patient education. Supportive therapy. CBT for relapse prevention. [place] for abstinence [place] Escitalopram Increase Abilify 30 mg Prolixin 5 mg PO BID Trazodone 100 mg p.o. daily Neurontin 300 mg p.o. twice daily Estimated Date of D/C: 02/06/18
--- NOTE | 2018-02-06 16:20 | PCM.PYCHPN ---
Psychiatric Progress Note - Psychiatric Progress Note Patient seen today, length of contact: 15 minutes Patient Chief Complaint: I am feeling a little better.' Problems Identified/Issues Discussed: Patient was seen and evaluated, chart reviewed and discussed with the staff. Staff reports that he appears somewhat more organized than before but he remained internally preoccupied. Per staff he remained hyper, irritable and manic. He reports racing thoughts or flight of ideas, poor concentration, poor sleep and poor appetite. He reports of seeing people and shadows and hearing voices. He is still back and forth in the hallways. He is taking medications and denies any side effects. Symptoms are gradually improving, however he needs to stay longer for further stabilization. Supportive therapy was given Medication Change: Yes Medical Record Reviewed: Yes Mental Status Examination - Cognitive Function Orientation: Person, Place, Situation, Time Memory: Intact Attention: WNL Concentration: Poor Association: Loose Fund of Knowledge: Poor - Mood Mood: Euphoric - Affect Affect: Broad - Speech Speech: Loud, Pressured - Formal Thought Process Formal Thought Process: Hallucinations, Delusions, Paranoia, Loosening of associations, Flight of ideas - Suicidal Ideation Suicidal Ideation: No - Homicidal Ideation Homicidal Ideation: No Goal/Treatment Plan - Goal/Treatment Plan Need for Continued Stay: Remain at risks for inpatient hospitalization, Discharge may exacerbated symptoms, Severe functional impairment Progress Toward Problem(s) and Goals/Treatment Plan: Bipolar manic severe with psychotic features. Cocaine use disorder severe. Opioid use disorder severe Patient education. Supportive therapy. CBT for relapse prevention. [place] for abstinence Abilify 30 mg Prolixin 5 mg PO daily Increase Prolixin 10 mg p.o. nightly Trazodone 100 mg p.o. daily Neurontin 300 mg p.o. twice daily Start Trileptal 150 mg p.o. twice daily Estimated Date of D/C: 02/06/18
--- NOTE | 2018-02-07 09:23 | PCM.BM ---
<Kaye Dinero - Last Filed: 02/07/18 09:22> Treatment Plan Problems - Problems identified on initial assessmt Depression Date Initiated: 01/30/18 Time Initiated: 06:00 Assessment reference: NA Status: Active Auditive Hallucination Date Initiated: 01/30/18 Time Initiated: 06:00 Assessment reference: NA Status: Active Treatment assets and liabiliti Patient Assests: cooperative, insightful, motivated, self-reliant, ADL independent, physically healthy, negotiates basic needs Patient Liabilities: financial problems (no working), poor support system (homeless), relationship conflicts (not seem his 7 y/o daugther) - Milieu Protocol Maintain good personal hygiene: daily Encourage regular showers, daily Remind patient to perform daily oral care, daily Assist patient to perform ADL's Maintain personal safety: every shift Educate patient to report safety concerns to staff, every shift Monitor environment for contraband/sharps Medication safety: Monitor for expected outcome, potential side effects: every shift, Assess barriers to learning: every shift, Assess readiness for medication education: every shift Milieu Narrative: Bipolar manic severe with psychotic features. Cocaine use disorder severe. Opioid use disorder severe Patient education. Supportive therapy. CBT for relapse prevention. [place] for abstinence Abilify 30 mg Prolixin 5 mg PO daily Increase Prolixin 10 mg p.o. nightly Trazodone 100 mg p.o. daily Neurontin 300 mg p.o. twice daily Start Trileptal 150 mg p.o. twice daily Family Contact Family involvement: Patient does not wish Family/SO involvement Family contact: Patient declines to allow family contact at present - Goals for Treatment Patient goals for treatment: "I am not sure where I want to go from treatment." Discharge/Continuing Care - Education Needs Education Needs: Patient Medication, Patient Diagnosis/Disease Process, Patient Coping Skills, Patient Placement options, Patient Community resources - Discharge Discharge Criteria: Free of Suicidal thoughts, Normal sleep pattern, Ability to care for self, Reduction of target symptoms Discharge to:: Home - Treatment Team Participation Patient/Family/SO Statement: Bipolar manic severe with psychotic features. Cocaine use disorder severe. Opioid use disorder severe Patient education. Supportive therapy. CBT for relapse prevention. [place] for abstinence Abilify 30 mg Prolixin 5 mg PO daily Increase Prolixin 10 mg p.o. nightly Trazodone 100 mg p.o. daily Neurontin 300 mg p.o. twice daily Start Trileptal 150 mg p.o. twice daily Discussed with Family/SO: No Was Patient/Family/SO present at Treatment Team Meeting: Yes Treatment Plan Review - Problem Depression Time Initiated: 06:00 Auditive Hallucination Time Initiated: 06:00 - Discharge / Continuing Care Discharge to:: Home Behavioral Health Services: Intensive Outpatient Health Needs: Follow up care/test, Medications/Rx <Meredith Echeverria - Last Filed: 02/07/18 11:34> Treatment Plan Review - Problem Depression Date Initiated: 02/07/18 Time Initiated: 11:34 Progress toward outcomes: improved Auditive Hallucination Date Initiated: 02/07/18 Time Initiated: 11:34 Progress toward outcomes: improved
[2018-02-07] MEDS: Benzocaine/Menthol (Cepacol) Lozenge MT PRN (11:59)
--- NOTE | 2018-02-08 13:08 | PCM.PYCHPN ---
Psychiatric Progress Note - Psychiatric Progress Note Patient seen today, length of contact: 15 minutes Patient Chief Complaint: I'm feeling much better. Problems Identified/Issues Discussed: Patient seen, chart reviewed, case discussed with the staff. Issues related to illness and treatment were discussed with the patient and staff. Reported compliant with treatment with no adverse affects. Tolerating treatment very well. Patient reported feeling much better with the treatment, slept better, no suicide. Patient was calm and cooperative. Awake, alert and oriented 3. Mood reported as okay. Affect appropriate. Patient signed a 48-hour notice for discharge from the hospital ending tomorrow. Aftercare discussed with the patient. At the time of evaluation, patient had no delusions, no auditory or visual hallucinations, no suicidal ideations or homicidal ideations. Medical Problems: None reported Diagnostic Results: Reviewed DSM 5 Symptoms Update: Improving with treatment Medication Change: No Medical Record Reviewed: Yes Mental Status Examination - Cognitive Function Orientation: Person, Place, Situation, Time Memory: Intact Attention: WNL Concentration: WNL Association: [facility] Fund of Knowledge: [facility] Decription of patient's judgement and insights: Fair - Mood Mood: Neutral - Affect Affect: Other (Appropriate) - Speech Speech: Soft - Formal Thought Process Formal Thought Process: No Impairment Psychotic Thoughts and Behaviors: None - Suicidal Ideation Suicidal Ideation: No - Homicidal Ideation Homicidal Ideation: No Goal/Treatment Plan - Goal/Treatment Plan Need for Continued Stay: Remain at risks for inpatient hospitalization, Discharge may exacerbated symptoms, Severe functional impairment Progress Toward Problem(s) and Goals/Treatment Plan: Patient education. Supportive therapy. CBT for relapse prevention. [place] for abstinence. Continue treatment as before. Patient wants to go back to his psychiatrist for follow-up care after discharge from the hospital. Estimated Date of D/C: 02/09/18 - Smoking Cessation Smoking Cessation Initiated: No
[2018-02-08] MEDS: Benzocaine/Menthol (Cepacol) Lozenge MT PRN (21:25)
[2018-02-09 06:54] VITALS: BP 115/72; PULSE 82; RESP 20; TEMP 98.1
--- NOTE | 2018-02-09 23:37 | PCM.PYCHDC ---
Mental Status Examination - Mental Status Examination Orientation: Person, Place, Situation, Time Memory: Intact Description of patient's judgement and insight: Fair Psychotic Thoughts and Behaviors: None Discharge Summary - Discharge Note Consultations:: List each consultation separately and include: 1. Reason for request. 2. Findings. 3. Follow-up Summary of Hospital Course include:: 1. Description of specific treatment plan utilized for patients during their course of treatmen. 2. Summarize the time- course for resolution of acute symptoms and/or regressed behaviors. 3. Describe issues identified and worked on during hospitalization. 4. Describe medication utilized. 5. Describe medical problems identified and treated. 6. Reassessment of suicide risk Summary of Hospital Course: Patient is a 37 years old, single, unemployed, male with history of depression, cocaine, opioid and cannabis use was admitted due to worsening of symptoms of depression and command type auditory hallucinations. Feeling depressed, no problem with sleep and appetite, lost 10 pounds in 1 week. No suicidal ideation. Patient has command type auditory hallucinations, reported voices are telling him different things like jump off of for roof of from height. Also believes people are following him. Patient also believes that sometime TV and radio is talking about him. Patient has history of cocaine, opioid and cannabis use. Patient's urine drug screen was positive for amphetamine. Reported taking Adderall for last 6 months prescribed by psychiatrist. Patient is seeing a psychiatrist once a month. Patient also smokes 7 cigarettes per day, refused to take nicotine patch. Patient was born in [place], has 11th grade of education. Not working for last 1 month. 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 Never and has one 7 years old daughter. Lives with mother. Patient's height is 6 feet 1 inch and weight is 170 pounds. - Diagnosis (1) Major depressive disorder, recurrent, severe with psychotic features Status: Acute (2) Cocaine use disorder, severe, dependence Status: Acute (3) Opioid use disorder, severe, dependence Status: Acute - Final Diagnosis (DSM 5) Condition upon Discharge: FAIR Disposition: HOME/ ROUTINE Follow-up Treatment Plan: Patient education. Supportive therapy. CBT for relapse prevention. [place] for abstinence. Continue treatment as before. Patient wants to go back to his psychiatrist for follow-up care after discharge from the hospital.
== END 2018-02-08 09:30 | disposition home or self-care (01) | DRG 430 ==
LOC: C.ER 19:47 → C.5E 01-30 05:02
PROVIDERS: ADMIT Psychiatry & Neurology Psychiatry; ATTEND Psychiatry & Neurology Psychiatry
PROC: GZ3ZZZZ Medication Management (ICD-10-PCS; principal; 2018-01-30)
PROC: HZ89ZZZ Medication Management for Substance Abuse Treatment, Other Replacement Medication (ICD-10-PCS; 2018-01-30)
PROC: GZHZZZZ Group Psychotherapy (ICD-10-PCS; 2018-01-30)
PROC: GZ56ZZZ Individual Psychotherapy, Supportive (ICD-10-PCS; 2018-01-30)
DX: F33.3 Major depressive disorder, recurrent, severe with psychotic symptoms (principal); F11.20 Opioid dependence, uncomplicated; F14.20 Cocaine dependence, uncomplicated; F17.210 Nicotine dependence, cigarettes, uncomplicated

== ENCOUNTER 2018-02-25 00:05 | Emergency (ER) | payer MEDICAID ==
--- NOTE | 2018-02-25 01:17 | C.PDOC ---
Time Seen by Provider: 02/25/18 00:18 Chief Complaint (Nursing): Cough, Cold, Congestion Past Medical History Vital Signs: Last Vital Signs Temp 97.5 F L 02/25/18 00:12 Pulse 83 02/25/18 00:12 Resp 18 02/25/18 00:12 BP 126/79 02/25/18 00:12 Pulse Ox 99 02/25/18 00:12 - Medical History PMH: Anxiety, Back Problems, Depression Denies: Diabetes, Hepatitis, HIV, HTN, Chronic Kidney Disease, Seizures, Se xually Transmitted Disease - [facility] Procedures DETOXIFICATION SERVICES FOR SUBSTANCE ABUSE TREATMENT (04/10/17) GROUP CERTIFIED SCRUM MASTER FOR SUBSTANCE ABUSE TREATMENT, PSYCHOEDUCATION (04/10/17) GROUP PSYCHOTHERAPY (01/30/18) INDIV PSYCHOTHERAPY FOR SUBSTANCE ABUSE TREATMENT, SUPPORT (04/10/17) INDIVIDUAL PSYCHOTHERAPY, BEHAVIORAL (12/20/15) INDIVIDUAL PSYCHOTHERAPY, SUPPORTIVE (01/30/18) MEDICATION MANAGEMENT (01/30/18) MEDS MGMT FOR SUBSTANCE ABUSE TREATMENT, OTH REPL MED (01/30/18) Family History: States: Unknown Family Hx - Social History Hx Alcohol Use: Yes Hx Substance Use: Yes (Amphetamines) - Immunization History Hx Tetanus Toxoid Vaccination: No Hx Influenza Vaccination: No Hx Pneumococcal Vaccination: No ED Course And Treatment O2 Sat by Pulse Oximetry: 99 Disposition - Disposition Referrals: Non [facility] Provider, [Primary Care Provider] -
--- NOTE | 2018-02-25 01:18 | C.PDOC ---
History Of Present Illness 37 year old male presents to the ED looking for a place to place to sleep. Patient reports he was recently kicked out from the place he was staying at and has nowhere to go. Patient admits to drinking tonight. Patient also c/o cough. Patient denies SI/HI, hallucinations, fever, chills, nausea, vomit, headache, rash, injury, fall, trauma. Time Seen by Provider: 02/25/18 00:18 Chief Complaint (Nursing): Cough, Cold, Congestion History Per: Patient History/Exam Limitations: no limitations Onset/Duration Of Symptoms: Days Recent travel outside of the [place]: No Additional History Per: Patient Past Medical History Reviewed: Historical Data, Nursing Documentation, Vital Signs Vital Signs: Last Vital Signs Temp 97.5 F L 02/25/18 00:12 Pulse 83 02/25/18 00:12 Resp 18 02/25/18 00:12 BP 126/79 02/25/18 00:12 Pulse Ox 99 02/25/18 01:17 - Medical History PMH: Anxiety, Back Problems, Depression Denies: Diabetes, Hepatitis, HIV, HTN, Chronic Kidney Disease, Seizures, Sexually Transmitted Disease Surgical History: No Surg Hx - [facility] Procedures DETOXIFICATION SERVICES FOR SUBSTANCE ABUSE TREATMENT (04/10/17) GROUP HORSESHOER FOR SUBSTANCE ABUSE TREATMENT, PSYCHOEDUCATION (04/10/17) GROUP PSYCHOTHERAPY (01/30/18) INDIV PSYCHOTHERAPY FOR SUBSTANCE ABUSE TREATMENT, SUPPORT (04/10/17) INDIVIDUAL PSYCHOTHERAPY, BEHAVIORAL (12/20/15) INDIVIDUAL PSYCHOTHERAPY, SUPPORTIVE (01/30/18) MEDICATION MANAGEMENT (01/30/18) MEDS MGMT FOR SUBSTANCE ABUSE TREATMENT, OTH REPL MED (01/30/18) Family History: States: Unknown Family Hx - Social History Hx Alcohol Use: Yes Hx Substance Use: Yes (Amphetamines) - Immunization History Hx Tetanus Toxoid Vaccination: No Hx Influenza Vaccination: No Hx Pneumococcal Vaccination: No Review Of Systems Constitutional: Negative for: Fever, Chills Cardiovascular: Negative for: Chest Pain Respiratory: Negative for: Shortness of Breath Gastrointestinal: Negative for: Nausea, Vomiting, Abdominal Pain Skin: Negative for: Rash Psych: Negative for: Depression, Suicidal ideation Physical Exam - Physical Exam Appears: Non-toxic, No Acute Distress Skin: Normal Color, Warm, Dry, No Rash Head: Atraumatic, Normacephalic Eye(s): bilateral: Normal Inspection, PERRL, EOMI Oral Mucosa: Moist Neck: Normal ROM, Supple Chest: Symmetrical Cardiovascular: Rhythm Regular, No Friction Rub, No Murmur Respiratory: Normal Breath Sounds, No Rales, No Rhonchi, No Wheezing Gastrointestinal/Abdominal: Soft, No Tenderness, No Guarding, No Rebound Back: Normal Inspection, No CVA Tenderness Extremity: Normal ROM, No Tenderness, No Swelling Neurological/Psych: Oriented x3, Normal Speech, Normal Cognition Gait: Steady ED Course And Treatment O2 Sat by Pulse Oximetry: 99 (ON RA) Pulse Ox Interpretation: Normal Medical Decision Making Medical Decision Making: On re-exam, the patient reports improvement of symptoms. A&O x3 with normal speech. Lungs are CTA, heart is RRR, abdomen is soft, non-tender and tolerating PO well. Ambulatory in the ED with steady gait. Follow up with the medical doctor within 1-2 days without fail Return if worsened Disposition - Disposition Referrals: Non [facility] Provider, [Primary Care Provider] - [facility] at [facility] [Outside] Disposition: HOME/ ROUTINE Disposition Time: 04:13 Condition: STABLE Additional Instructions: Follow up with the medical doctor within 1-2 days without fail Return if worsened Instructions: Viral Upper Respiratory Infection, Adult (DC), Alcohol Use - When Is Drinking a Problem? Forms: [employer] (Croatian) - Clinical Impression Clinical Impression: Upper respiratory infection, Homelessness - PA / CLINICAL TRIALS ASSISTANT / Resident Statement MD/DO has reviewed & agrees with the documentation as recorded. - Scribe Statement The provider has reviewed the documentation as recorded by the Scribe Priyank Park All medical record entries made by the Scribe were at my direction and personally dictated by me. I have reviewed the chart and agree that the record accurately reflects my personal performance of the history, physical exam, medical decision making, and the department course for this patient. I have also personally directed, reviewed, and agree with the discharge instructions and disposition.
[2018-02-25 05:36] VITALS: BP 110/62; PULSE 89; RESP 20; TEMP 98.5; O2SAT 98
== END 2018-02-25 05:40 | disposition home or self-care (01) ==
LOC: C.ER 00:05 → SUPCPDRO 00:05 → C.ER 05:40
DX: J06.9 Acute upper respiratory infection, unspecified (principal); Z59.0 Homelessness

== ENCOUNTER 2018-05-11 18:52 | Emergency (ER) | payer MEDICAID ==
[2018-05-11 18:58] VITALS: BP 117/69; PULSE 98; TEMP 98.4; O2SAT 95
--- NOTE | 2018-05-11 19:20 | C.PDOC ---
History Of Present Illness 37 year old male presents to the emergency department with complaints of left index finger pain s/p opening a package 10 days ago. Patient states that he suffered a deep laceration and the wound bled profusely. He reports cleaning with peroxide and using Neosporin, wrapping the wound for a few days. Patient reports that he started noticing swelling to the left index finger a few days ago. He denies fever, chills, nausea, vomiting, paresthesia, and weakness. Patient states that his last tetanus vaccination was a few years ago. Time Seen by Provider: 05/11/18 19:16 Chief Complaint (Nursing): Abnormal Skin Integrity History Per: Patient History/Exam Limitations: no limitations Onset/Duration Of Symptoms: Days (10) Current Symptoms Are (Timing): Still Present Location Of Injury: Left: Hand (index finger) Quality Of Symptoms: Swollen, Other (laceration wound) Past Medical History Vital Signs: Last Vital Signs Temp 98.4 F 05/11/18 18:54 Pulse 98 H 05/11/18 18:54 Resp 20 05/11/18 18:54 BP 117/69 05/11/18 18:54 Pulse Ox 95 05/11/18 18:54 - Medical History PMH: Anxiety, Back Problems, Depression Denies: Diabetes, Hepatitis, HIV, HTN, Chronic Kidney Disease, Seizures, Sexually Transmitted Disease Surgical History: No Surg Hx - [facility] Procedures DETOXIFICATION SERVICES FOR SUBSTANCE ABUSE TREATMENT (04/10/17) GROUP DEVELOPER ARCHITECT FOR SUBSTANCE ABUSE TREATMENT, PSYCHOEDUCATION (04/10/17) GROUP PSYCHOTHERAPY (01/30/18) INDIV PSYCHOTHERAPY FOR SUBSTANCE ABUSE TREATMENT, SUPPORT (04/10/17) INDIVIDUAL PSYCHOTHERAPY, BEHAVIORAL (12/20/15) INDIVIDUAL PSYCHOTHERAPY, SUPPORTIVE (01/30/18) MEDICATION MANAGEMENT (01/30/18) MEDS MGMT FOR SUBSTANCE ABUSE TREATMENT, OTH REPL MED (01/30/18) Family History: States: No Known Family Hx - Social History Hx Alcohol Use: No Hx Substance Use: Yes - Immunization History Hx Tetanus Toxoid Vaccination: Yes Hx Influenza Vaccination: Yes Hx Pneumococcal Vaccination: Yes Review Of Systems Constitutional: Negative for: Fever, Chills Gastrointestinal: Negative for: Nausea, Vomiting Skin: Positive for: Other (swelling + laceration wound to left finger) Neurological: Negative for: Weakness, Numbness Physical Exam - Physical Exam Appears: Non-toxic, No Acute Distress Skin: Warm, Dry, Other (linear horizontal laceration (healing) to the distal aspect of the left index finger with surrounding erythema and edema. No warmth.) Head: Atraumatic, Normacephalic Eye(s): bilateral: Normal Inspection, PERRL, EOMI Neck: Normal, Supple Chest: Symmetrical, No Tenderness Extremity: Normal ROM (at left index finger), Capillary Refill (< 2 seconds) Pulses: Left Radial: Normal Neurological/Psych: Oriented x3, Normal Speech, Normal Cognition, Normal Motor, Normal Sensation ED Course And Treatment O2 Sat by Pulse Oximetry: 95 (RA) Pulse Ox Interpretation: Normal Medical Decision Making Medical Decision Making: Plan: Keflex 500mg PO Adacel 0.5mg IM XR Left Hand Patient verbalizes understanding and is in agreement with plan. Patient is stable for discharge. Disposition Counseled Patient/Family Regarding: Studies Performed, Diagnosis, Need For Followup, Rx Given - Disposition Referrals: [facility] at [facility] [Outside] Disposition: HOME/ ROUTINE Disposition Time: 20:05 Condition: STABLE Additional Instructions: Start Keflex 500mg four times a day for 7 days Start Naproxen as needed for pain Follow up in Ortho Clinic for further management Return to ED if symptoms worsen Prescriptions: Cephalexin [cephalexin] 500 mg PO Q12 #14 cap Naproxen [Naprosyn] 500 mg PO BID #30 tablet Instructions: Cellulitis (Skin Infection), Adult (DC) Forms: [employer] (Yakut) - Clinical Impression Clinical Impression: Cellulitis - PA / [employer] STORAGE ARCHITECT / Resident Statement MD/DO has reviewed & agrees with the documentation as recorded. - Scribe Statement The provider has reviewed the documentation as recorded by the Scribe (Edilson Nieto) All medical record entries made by the Scribe were at my direction and personally dictated by me. I have reviewed the chart and agree that the record accurately reflects my personal performance of the history, physical exam, medical decision making, and the department course for this patient. I have also personally directed, reviewed, and agree with the discharge instructions and disposition.
[2018-05-11] MEDS ORDERED: Tdap Vaccine 0.5 ml Vial (10-64 yrs) IM ONE ×2 (19:28→19:32)
[2018-05-11 20:22] VITALS: RESP 18
--- NOTE | 2018-05-12 13:03 | RAD ---
Date of service: 05/11/2018 PROCEDURE: Left Index finger radiographs. HISTORY: s/p trauma COMPARISON: None available TECHNIQUE: AP radiograph of the left hand, as well as spot oblique and lateral images of index finger were obtained. FINDINGS: LEFT INDEX FINGER: Unremarkable left 2nd digit without acute displaced fracture identified. Chronic appearing fracture deformity of the ulna styloid. Remainder of the left hand (as seen on the AP view) grossly intact. JOINTS: No dislocation. SOFT TISSUES: Marked soft tissue swelling. No evidence of radiopaque foreign body. OTHER FINDINGS: None. IMPRESSION: No acute displaced fracture identified. Chronic appearing fracture deformity of the ulna styloid. Marked soft tissue swelling of the 2nd digit.
== END 2018-05-11 20:21 | disposition home or self-care (01) ==
LOC: C.ER 18:52
DX: L03.012 Cellulitis of left finger (principal)

== ENCOUNTER 2018-05-12 07:56 | Emergency (ER) | payer MEDICAID ==
[2018-05-12 08:10] VITALS: BMI 23.7
[2018-05-12 08:16] VITALS: BP 128/76; PULSE 92; RESP 18; TEMP 97.6; O2SAT 99
--- NOTE | 2018-05-12 08:32 | C.PDOC ---
History Of Present Illness Patient is a 37 year old male who presents to the ED requesting heroin detox. Patient states that he typically uses IV 10 bags daily, but his last use was yesterday. He is also c/o abdominal cramping and nausea. Patient denies any SI/HI, hallucinations, CP, SOB, or other medical complaints at the present moment. Time Seen by Provider: 05/12/18 08:20 Chief Complaint (Nursing): Substance Abuse History Per: Patient History/Exam Limitations: no limitations Suicide/Self Injury Attempted (Context): None Associated Symptoms: denies: Suicidal Thoughts, Suicidal Plan Involuntary Hold By: None Recent travel outside of the [place]: No Additional History Per: Patient Past Medical History Reviewed: Historical Data, Nursing Documentation, Vital Signs Vital Signs: Last Vital Signs Temp 97.6 F 05/12/18 08:11 Pulse 92 H 05/12/18 08:11 Resp 18 05/12/18 08:11 BP 128/76 05/12/18 08:11 Pulse Ox 99 05/12/18 08:11 - Medical History PMH: Anxiety, Back Problems, Depression Denies: Diabetes, Hepatitis, HIV, HTN, Chronic Kidney Disease, Seizures, Sexually Transmitted Disease Surgical History: No Surg Hx - [facility] Procedures DETOXIFICATION SERVICES FOR SUBSTANCE ABUSE TREATMENT (04/10/17) GROUP PARKING LOT CHAUFFEUR FOR SUBSTANCE ABUSE TREATMENT, PSYCHOEDUCATION (04/10/17) GROUP PSYCHOTHERAPY (01/30/18) INDIV PSYCHOTHERAPY FOR SUBSTANCE ABUSE TREATMENT, SUPPORT (04/10/17) INDIVIDUAL PSYCHOTHERAPY, BEHAVIORAL (12/20/15) INDIVIDUAL PSYCHOTHERAPY, SUPPORTIVE (01/30/18) MEDICATION MANAGEMENT (01/30/18) MEDS MGMT FOR SUBSTANCE ABUSE TREATMENT, OTH REPL MED (01/30/18) Family History: States: Unknown Family Hx - Social History Hx Alcohol Use: No (PT DENIES) Hx Substance Use: Yes - Immunization History Hx Tetanus Toxoid Vaccination: No Hx Influenza Vaccination: No Hx Pneumococcal Vaccination: No Review Of Systems Cardiovascular: Negative for: Chest Pain Respiratory: Negative for: Shortness of Breath Gastrointestinal: Positive for: Nausea, Abdominal Pain (cramping) Psych: Negative for: Suicidal ideation, Other (homicidal ideation or hallucinations) Physical Exam - Physical Exam Appears: Non-toxic, No Acute Distress Skin: Normal Color, Warm, Dry Head: Atraumatic, Normacephalic Eye(s): bilateral: Normal Inspection Oral Mucosa: Moist Neck: Normal ROM, Supple Chest: Symmetrical, No Deformity Cardiovascular: Rhythm Regular, No Murmur Respiratory: Normal Breath Sounds, No Rales, No Rhonchi, No Wheezing Gastrointestinal/Abdominal: Soft, No Tenderness Extremity: Normal ROM Neurological/Psych: Oriented x3, Normal Speech, Normal Cognition ED Course And Treatment O2 Sat by Pulse Oximetry: 99 (on RA) Pulse Ox Interpretation: Normal Progress Note: Plan: Zofran 4mg PO. Pepcid 20mg PO. No detox beds were available. Patient discharged. Disposition Counseled Patient/Family Regarding: Diagnosis, Need For Followup, Rx Given - Disposition Referrals: [facility] at [facility] [Outside] Disposition: HOME/ ROUTINE Disposition Time: 08:30 Condition: STABLE Additional Instructions: RETURN TO ER AT LATER DATE TO TRY FOR DETOX, OR CALL FOR PRESCREENING RETURN TO ER IF YOU HAVE ANY CONCERNING SYMPTOMS Prescriptions: Famotidine [Pepcid] 20 mg PO BID PRN #15 tab PRN Reason: abdominal Ondansetron ODT [Zofran ODT] 1 odt PO BID PRN #15 odt PRN Reason: Nausea/Vomiting Instructions: Drug Abuse and Drug Addiction (DC) Forms: [employer] (Northern Irish) Print Language: [place] - Clinical Impression Clinical Impression: Opiate dependence - Scribe Statement The provider has reviewed the documentation as recorded by the Alesia Pérez All medical record entries made by the Scribe were at my direction and personally dictated by me. I have reviewed the chart and agree that the record accurately reflects my personal performance of the history, physical exam, medical decision making, and the department course for this patient. I have also personally directed, reviewed, and agree with the discharge instructions and disposition.
== END 2018-05-12 08:52 | disposition home or self-care (01) ==
LOC: C.ER 07:56
DX: F11.20 Opioid dependence, uncomplicated (principal)

== ENCOUNTER 2018-05-15 14:39 | Emergency (ER) | payer MEDICAID | END 2018-05-15 15:33 | disposition home or self-care (01) | LOC: C.ER 14:39 ==

== ENCOUNTER 2018-05-27 08:42 | Inpatient (IN) | payer MEDICAID ==
[2018-05-27 08:42] VITALS: BMI 23.7
--- NOTE | 2018-05-27 09:39 | C.PDOC ---
History Of Present Illness 37 y/o male presents to the ER requesting detox from heroin. Patient states that he uses heroin IV and he uses 10 bags per day. Patient reports that his last use was last night. He is c/o mild nausea and abdominal discomfort. Denies having fever,chills, and vomiting. Time Seen by Provider: 05/27/18 09:09 Chief Complaint (Nursing): Substance Abuse History Per: Patient History/Exam Limitations: no limitations Onset/Duration Of Symptoms: Days Current Symptoms Are (Timing): Still Present Severity: Moderate Past Medical History Reviewed: Historical Data, Nursing Documentation, Vital Signs Vital Signs: Last Vital Signs Temp 98 F 05/27/18 09:00 Pulse 75 05/27/18 09:00 Resp 18 05/27/18 09:00 BP 111/65 05/27/18 09:00 Pulse Ox 97 05/27/18 09:00 - Medical History PMH: Anxiety, Back Problems, Depression Denies: Diabetes, Hepatitis, HIV, HTN, Chronic Kidney Disease, Seizures, Sexually Transmitted Disease Other Surgeries: Hx of surgeries - [facility] Procedures DETOXIFICATION SERVICES FOR SUBSTANCE ABUSE TREATMENT (04/10/17) GROUP IN PROCESS INSPECTOR FOR SUBSTANCE ABUSE TREATMENT, PSYCHOEDUCATION (04/10/17) GROUP PSYCHOTHERAPY (01/30/18) INDIV PSYCHOTHERAPY FOR SUBSTANCE ABUSE TREATMENT, SUPPORT (04/10/17) INDIVIDUAL PSYCHOTHERAPY, BEHAVIORAL (12/20/15) INDIVIDUAL PSYCHOTHERAPY, SUPPORTIVE (01/30/18) MEDICATION MANAGEMENT (01/30/18) MEDS MGMT FOR SUBSTANCE ABUSE TREATMENT, OTH REPL MED (01/30/18) Family History: States: No Known Family Hx - Social History Hx Alcohol Use: Yes Hx Substance Use: Yes (heroin) - Immunization History Hx Tetanus Toxoid Vaccination: No Hx Influenza Vaccination: No Hx Pneumococcal Vaccination: No Review Of Systems Constitutional: Negative for: Fever, Chills Gastrointestinal: Positive for: Nausea, Abdominal Pain. Negative for: Vomiting, Diarrhea Physical Exam - Physical Exam Appears: Non-toxic, No Acute Distress Skin: Warm, Dry Head: Atraumatic, Normacephalic Eye(s): bilateral: Normal Inspection Oral Mucosa: Moist Neck: Supple Chest: Symmetrical Cardiovascular: Rhythm Regular Respiratory: No Rales, No Rhonchi, No Wheezing Gastrointestinal/Abdominal: Soft, No Tenderness, No Guarding, No Rebound Neurological/Psych: Oriented x3, Normal Speech ED Course And Treatment - Laboratory Results Result Diagrams: 05/27/18 10:15 05/27/18 10:15 O2 Sat by Pulse Oximetry: 97 (RA) Pulse Ox Interpretation: Normal Medical Decision Making Medical Decision Making: Plan: --Labs --UA --Zofran PO Patient is medically cleared for detox. Patient is recommended to f/u in outpatient for hematuria. Disposition Discussed With Dr.: Zafar Torres Doctor Will See Patient In The: Hospital - Disposition Disposition: HOSPITALIZED Disposition Time: 11:56 Condition: GOOD Forms: [employer] (New Zealander) - Clinical Impression Clinical Impression: Opioid use disorder, severe, dependence - PA / OPERATING TABLE ASSEMBLER / Resident Statement MD/DO has reviewed & agrees with the documentation as recorded. - Scribe Statement The provider has reviewed the documentation as recorded by the Baltaibe Radames Francis Provider Attestation All medical record entries made by the Scribe were at my direction and personally dictated by me. I have reviewed the chart and agree that the record accurately reflects my personal performance of the history, physical exam, medical decision making, and the department course for this patient. I have also personally directed, reviewed, and agree with the discharge instructions and disposition.
[2018-05-27 10:27] LABS: BASO % 0.6 % (0.0-2.0); EOS # 0.1 K/uL (0.0-0.7); EOS % 1.7 % (0.0-4.0); HEMOGLOBIN 12.4 g/dL (12.0-18.0); LYMPH # 1.6 K/uL (1.0-4.3); LYMPH % 19.8 % (20.0-40.0); MEAN CELL VOLUME 89.3 fL (80.0-94.0); MEAN CORPUSCULAR HEMOGLOBIN 30.2 pg (27.0-31.0); MEAN CORPUSCULAR HGB CONC 33.9 g/dL (33.0-37.0); MEAN PLATELET VOLUME 7.8 fL (7.2-11.7); MONO # 0.9 K/uL (0.0-0.8); MONO % 11.5 % (0.0-10.0); NEUT # 5.2 K/uL (1.8-7.0); NEUT % 66.4 % (50.0-75.0); RBC 4.11 Mil/uL (4.40-5.90); RED CELL DISTRIBUTION WIDTH 12.7 % (11.5-14.5); WHITE BLOOD COUNT 7.9 K/uL (4.8-10.8)
[2018-05-27 10:47] LABS: URINE BILIRUBIN NEGATIVE (NEGATIVE); URINE BLOOD 1+ (NEGATIVE); URINE CLARITY Clear (Clear); URINE COLOR Yellow (YELLOW); URINE GLUCOSE (UA) NORMAL (Normal); URINE LEUKOCYTE ESTERASE NEG Leu/uL (Negative); URINE PROTEIN NEGATIVE (NEGATIVE); URINE UROBILINOGEN NORMAL mg/dL (0.2-1.0)
[2018-05-27 11:04] LABS: ALB/GLOB RATIO 1.3 (1.0-2.1); ALBUMIN 3.7 g/dL (3.5-5.0); ALT/SGPT 25 U/L (21-72); AST/SGOT 30 U/L (17-59); BLOOD UREA NITROGEN 12 mg/dL (9-20); CALCIUM 8.7 mg/dl (8.6-10.4); GFR NON-AFRICAN AMERICAN > 60
[2018-05-27 11:17] LABS: BARBITURATES, UR NEGATIVE (NEGATIVE); BENZODIAZEPINES, UR NEGATIVE (NEGATIVE); PHENCYCLIDINE, UR NEGATIVE (NEGATIVE)
[2018-05-27 11:19] LABS: OPIATES, UR POSITIVE (NEGATIVE)
--- NOTE | 2018-05-27 13:08 | PCM.PSYCH ---
Initial Psychiatric Evaluation - Initial Psychiatric Evaluation Type of Admission: Voluntary Legal Status: Capacity Chief Complaint (in patient's own words): "I need detox" History of Present Illness and Precipitating Events: Patient is a 37 year old single, male with no children, still living in shelters in [facility] or with friends and is unemployed. He is using 5-10 bags of heroin daily by snorting. Reports withdrawal sxs. Also using cocaine occasionally. He smokes 10 cig/d He admitted that he had taken 20- 30 mg methadone one time to cope with withdrawal 5-6 days ago. Denies psychosis or brittany but has passive SI, depression, irritability, neurovegetative sxs. Psychiatric History: Hospitalized "many times," including with us due to depression, last one was within 6 months Family Psychiatric History: Uncle - Unspecified dx Past Medical History: Denies Past Surgical History: Denies Allergies: Denies Past Psychiatric History - Past Psychiatric History Previous Treatment History: Inpatient Pertinent Medical Hx (Current Medical&Sleep Prob, Allergies): Allergies Allergy/AdvReac Type Severity Reaction Status Date / Time No Known Allergies Allergy Verified 05/27/18 08:59 Famotidine [Pepcid] 20 mg PO BID PRN #15 tab 05/12/18 Ondansetron ODT [Zofran ODT] 1 odt PO BID PRN #15 odt 05/12/18 Review of Systems - Psychiatric Psychiatric: Abnormal Sleep Pattern, Anhedonia, Anxiety, Change in Appetite, Depression, Difficulty Concentrating, Irritability, Memory Loss. absent: Hallucinations, Homicidal Ideation, Hopelessness, Suicidal Ideation Mental Status Examination - Personal Presentation Personal Presentation: Looks older than stated age - Affect Affect: Constricted - Motor Activity Motor Activity: Calm - Reliability in Providing Information Reliability in Providing Information: Good - Speech Speech: Organized - Mood Mood: Depressed, Anxious - Formal Thought Process Formal Thought Process: No Impairment - Cognitive Functions Orientation: Person, Place, Situation, Time Sensorium: Alert Attention/Concentration: Attentive Estimate of Intelligence: Average Judgement: Intact, as evidence by: Insight regarding need for hospitalization Memory: Recent intact, as evidence by: Ability to recall events of the day, Remote intact, as evidenced by: Abilit to recall sig. life events - Risk Risk: Withdrawal, Diminished functioning - Strength & Assets Inventory Strength & Assets Inventory: Cooperative - Limitations Limitations: Other DSM 5 DX - DSM 5 DSM 5 Diagnosis: Opioid withdrawal Opioid use d/o -severe Cocaine use d/o - moderate Tobacco use d/o - mild Major depression, recurrent, moderate to severe - Recommended/Plan of Treatment Treatment Recommendations and Plan of Treatment: Methadone detox As needed medications All risks, benefits and alternatives of medications, including no medications, discussed and the patient understood and agreed. Attend groups and activities Supportive therapy and psychoeducation [place] for abstinence CBT for relapse prevention Encourage MAT Refer to rehab or IOP Attend self-help groups as well 34 min Projected ELOS: 4 days Prognosis: good w treatment - Smoking Cessation Smoking Cessation Initiated: Yes
[2018-05-27] MEDS ORDERED: Aluminum Hydroxide/Magnesium Hydroxide Susp (30 mL) PO PRN (13:21)
--- NOTE | 2018-05-27 13:24 | PCM.BM ---
<Pretty Velazquez - Last Filed: 05/27/18 13:22> Treatment Plan Problems - Problems identified on initial assessmt Denial Date Initiated: 05/27/18 Assessment reference: NA Status: Active Defensive Coping Date Initiated: 05/27/18 Assessment reference: NA Status: Active Low Motivation to Change Date Initiated: 05/27/18 Assessment reference: NA Status: Active Treatment assets and liabiliti Patient Assests: cooperative, insightful, motivated, self-reliant, ADL independent, physically healthy, negotiates basic needs Patient Liabilities: substance abuse - Milieu Protocol Maintain good personal hygiene: daily Encourage regular showers, daily Remind patient to perform daily oral care, daily Assist patient to perform ADL's Conduct patient checks and document Observation sheet: Q15 minutes Maintain personal safety: every shift Educate patient to report safety concerns to staff, every shift Monitor environment for contraband/sharps Medication safety: Monitor for expected outcome, potential side effects: every shift, Assess barriers to learning: every shift, Assess readiness for medication education: every shift <Shara Wilson - Last Filed: 05/29/18 10:07> Family Contact Family involvement: Famliy/SO not involved - Goals for Treatment Patient goals for treatment: Complete detox and review aftercare options with counseling staff. Discharge/Continuing Care - Education Needs Education Needs: Patient Medication, Patient Diagnosis/Disease Process, Patient Coping Skills, Patient Anger Management skills, Patient Placement options, Patient Community resources - Discharge Discharge Criteria: No longer exhibiting s/s of withdrawal, Reduction of target symptoms Discharge to:: Other (Aftercare TBD as Pt. is unsure at the time of this documentation.) - Treatment Team Participation Patient/Family/SO Statement: 05/29/18 10:07 "I don't know yet..." Discussed with Family/SO: No Was Patient/Family/SO present at Treatment Team Meeting: Yes
--- NOTE | 2018-05-28 14:31 | PCM.PYCHPN ---
Psychiatric Progress Note - Psychiatric Progress Note Patient seen today, length of contact: 16 min Patient Chief Complaint: "Same' Problems Identified/Issues Discussed: The pt is seen, chart reviewed, case is discussed with staff. The pt is compliant with medications and reports no side-effects. Symptoms are improving but needs more time to stabilize and to avoid relapse. Pt attends groups and activities. Support given, psycho-education provided. After care discussed. Medication Change: Yes (detox changes daily) Medical Record Reviewed: Yes Mental Status Examination - Cognitive Function Orientation: Person, Place, Situation, Time Memory: Intact Attention: WNL Concentration: Poor Association: WNL Fund of Knowledge: WNL - Mood Mood: Depressed, Anxious - Affect Affect: Constricted - Speech Speech: Appropriate - Formal Thought Process Formal Thought Process: No Impairment - Suicidal Ideation Suicidal Ideation: No - Homicidal Ideation Homicidal Ideation: No Goal/Treatment Plan - Goal/Treatment Plan Need for Continued Stay: Discharge may exacerbated symptoms, Severe functional impairment Progress Toward Problem(s) and Goals/Treatment Plan: Methadone detox As needed medications All risks, benefits and alternatives of medications, including no medications, discussed and the patient understood and agreed. Attend groups and activities Supportive therapy and psychoeducation [place] for abstinence CBT for relapse prevention Encourage MAT Refer to rehab or IOP Attend self-help groups as well
[2018-05-29 13:06] VITALS: RESP 18
--- NOTE | 2018-05-30 00:01 | PCM.PYCHPN ---
Psychiatric Progress Note - Psychiatric Progress Note Patient seen today, length of contact: 16 min Patient Chief Complaint: I am still withdrawing Problems Identified/Issues Discussed: Patient seen and evaluated, chart reviewed and discussed with the nurse. He still reports withdrawal symptoms, including cramps, headaches, and anxiety. However he denies any feelings of hopelessness/helplessness and denies suicidal ideation or any homicidal ideation. Patient is compliant with medications and denies any side effects. Symptoms are improving but pt needs more time to stabilize. Support and psychoeducation given. Medication Change: Yes (detox changes daily) Medical Record Reviewed: Yes Mental Status Examination - Cognitive Function Orientation: Person, Place, Situation, Time Memory: Intact Attention: WNL Concentration: Poor Association: WNL Fund of Knowledge: WNL - Mood Mood: Depressed, Anxious - Affect Affect: Constricted - Speech Speech: Appropriate - Formal Thought Process Formal Thought Process: No Impairment - Suicidal Ideation Suicidal Ideation: No - Homicidal Ideation Homicidal Ideation: No Goal/Treatment Plan - Goal/Treatment Plan Need for Continued Stay: Discharge may exacerbated symptoms, Severe functional impairment Progress Toward Problem(s) and Goals/Treatment Plan: Opioid withdrawal Opioid use d/o -severe Cocaine use d/o - moderate Tobacco use d/o - mild Major depression, recurrent, moderate to severe Methadone detox As needed medications All risks, benefits and alternatives of medications, including no medications, discussed and the patient understood and agreed. Attend groups and activities Supportive therapy and psychoeducation [place] for abstinence CBT for relapse prevention Encourage MAT Refer to rehab or IOP Attend self-help groups as well
[2018-05-30 06:13] VITALS: PULSE 76
[2018-05-30 11:41] VITALS: BP 130/86; TEMP 97.6; O2SAT 98
--- NOTE | 2018-05-30 13:46 | PCM.PYCHDC ---
Mental Status Examination - Mental Status Examination Orientation: Person Discharge Summary - Discharge Note Consultations:: List each consultation separately and include: 1. Reason for request. 2. Findings. 3. Follow-up Summary of Hospital Course include:: 1. Description of specific treatment plan utilized for patients during their course of treatmen. 2. Summarize the time- course for resolution of acute symptoms and/or regressed behaviors. 3. Describe issues identified and worked on during hospitalization. 4. Describe medication utilized. 5. Describe medical problems identified and treated. 6. Reassessment of suicide risk Summary of Hospital Course: Patient is a 37 year old single, male with no children, still living in shelters in [facility] or with friends and is unemployed. He is using 5-10 bags of heroin daily by snorting. Reports withdrawal sxs. Also using cocaine occasionally. He smokes 10 cig/d He admitted that he had taken 20- 30 mg methadone one time to cope with withdrawal 5-6 days ago. Denies psychosis or brittany but has passive SI, depression, irritability, neurovegetative sxs. Psychiatric History: Hospitalized "many times," including with us due to depression, last one was within 6 months Family Psychiatric History: Uncle - Unspecified dx Past Medical History: Denies Past Surgical History: Denies Allergies: Denies He left to [place] [employer] at the last minute. He didn;t want to stay another day or two out of fear of relapsing over the weekend. - Final Diagnosis (DSM 5) Condition upon Discharge: GOOD Disposition: HOME/ ROUTINE Follow-up Treatment Plan: Methadone detox As needed medications All risks, benefits and alternatives of medications, including no medications, discussed and the patient understood and agreed. Attend groups and activities Supportive therapy and psychoeducation [place] for abstinence CBT for relapse prevention Encourage MAT Refer to rehab or IOP Attend self-help groups as well
== END 2018-05-30 14:00 | disposition home or self-care (01) | DRG 744 ==
LOC: C.ER 08:42 → C.7D 11:55
PROVIDERS: ADMIT Psychiatry & Neurology Psychiatry; ATTEND Psychiatry & Neurology Psychiatry
PROC: HZ52ZZZ Individual Psychotherapy for Substance Abuse Treatment, Cognitive-Behavioral (ICD-10-PCS; principal; 2018-05-27)
PROC: HZ2ZZZZ Detoxification Services for Substance Abuse Treatment (ICD-10-PCS; 2018-05-27)
PROC: HZ59ZZZ Individual Psychotherapy for Substance Abuse Treatment, Supportive (ICD-10-PCS; 2018-05-27)
PROC: HZ56ZZZ Individual Psychotherapy for Substance Abuse Treatment, Psychoeducation (ICD-10-PCS; 2018-05-27)
PROC: HZ42ZZZ Group Counseling for Substance Abuse Treatment, Cognitive-Behavioral (ICD-10-PCS; 2018-05-27)
PROC: HZ46ZZZ Group Counseling for Substance Abuse Treatment, Psychoeducation (ICD-10-PCS; 2018-05-27)
PROC: GZHZZZZ Group Psychotherapy (ICD-10-PCS; 2018-05-27)
PROC: GZ58ZZZ Individual Psychotherapy, Cognitive-Behavioral (ICD-10-PCS; 2018-05-27)
PROC: GZ56ZZZ Individual Psychotherapy, Supportive (ICD-10-PCS; 2018-05-27)
DX: F11.23 Opioid dependence with withdrawal (principal); F33.2 Major depressive disorder, recurrent severe without psychotic features; F14.20 Cocaine dependence, uncomplicated; F17.210 Nicotine dependence, cigarettes, uncomplicated; F41.9 Anxiety disorder, unspecified; R45.851 Suicidal ideations

== ENCOUNTER 2018-05-31 21:05 | Emergency (ER) | payer MEDICAID ==
[2018-05-31 21:06] VITALS: BMI 23.7
[2018-05-31 21:20] VITALS: RESP 20
--- NOTE | 2018-05-31 21:58 | C.PDOC ---
History Of Present Illness 37 year old male presents complaining of swelling and deformity to the left 2nd finger. Patient states 1 month ago he sustained a laceration to the finger but did not seek medical attention, he took care of it with tape from the pharmacy but states it is not healing well. Denies weakness or numbness. Time Seen by Provider: 05/31/18 21:36 Chief Complaint (Nursing): Upper Extremity Problem/Injury History Per: Patient History/Exam Limitations: no limitations Onset/Duration Of Symptoms: Days Current Symptoms Are (Timing): Still Present Recent travel outside of the [place]: No Past Medical History Reviewed: Historical Data, Nursing Documentation, Vital Signs Vital Signs: Last Vital Signs Temp 97.8 F 05/31/18 21:16 Pulse 93 H 05/31/18 21:16 Resp 20 05/31/18 21:16 BP 112/79 05/31/18 21:16 Pulse Ox 95 05/31/18 21:16 - Medical History PMH: Anxiety, Back Problems, Depression Denies: Diabetes, Hepatitis, HIV, HTN, Chronic Kidney Disease, Seizures, Sexually Transmitted Disease - [facility] Procedures DETOXIFICATION SERVICES FOR SUBSTANCE ABUSE TREATMENT (04/10/17) GROUP NURSE MANAGER FOR SUBSTANCE ABUSE TREATMENT, PSYCHOEDUCATION (04/10/17) GROUP PSYCHOTHERAPY (01/30/18) INDIV PSYCHOTHERAPY FOR SUBSTANCE ABUSE TREATMENT, SUPPORT (04/10/17) INDIVIDUAL PSYCHOTHERAPY, BEHAVIORAL (12/20/15) INDIVIDUAL PSYCHOTHERAPY, SUPPORTIVE (01/30/18) MEDICATION MANAGEMENT (01/30/18) MEDS MGMT FOR SUBSTANCE ABUSE TREATMENT, OTH REPL MED (01/30/18) Family History: States: Unknown Family Hx - Social History Hx Alcohol Use: Yes Hx Substance Use: Yes - Immunization History Hx Tetanus Toxoid Vaccination: No Hx Influenza Vaccination: No Hx Pneumococcal Vaccination: No Review Of Systems Musculoskeletal: Positive for: Hand Pain Neurological: Negative for: Weakness, Numbness Physical Exam - Physical Exam Appears: Non-toxic Skin: Normal Color, Warm Head: Atraumatic, Normacephalic Oral Mucosa: Moist Extremity: Capillary Refill (<2 seconds), Other (Left 2nd finger deformity, healed wound to PIP joint. No erythema, swelling, redness, or fluctuant mass.) Pulses: Left Radial: Normal, Right Radial: Normal Neurological/Psych: Oriented x3, Normal Speech, Normal Motor, Normal Sensation ED Course And Treatment O2 Sat by Pulse Oximetry: 95 (Room air) Pulse Ox Interpretation: Normal Progress Note: Patient is requesting finger splint, finger splint placed, he is resting comfortably in no acute distress, vitals are stable, will discharge home with instructions to follow up with hand specialist. 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 - Scribe Statement The provider has reviewed the documentation as recorded by the Scribe Jl Márquez All medical record entries made by the Scribe were at my direction and personally dictated by me. I have reviewed the chart and agree that the record accurately reflects my personal performance of the history, physical exam, medical decision making, and the department course for this patient. I have also personally directed, reviewed, and agree with the discharge instructions and disposition.
[2018-05-31 22:07] VITALS: BP 110/80; PULSE 90; TEMP 98
[2018-06-01 02:25] VITALS: O2SAT 95
== END 2018-05-31 22:05 | disposition home or self-care (01) ==
LOC: C.ER 21:05
DX: M79.645 Pain in left finger(s) (principal)

== ENCOUNTER 2018-07-26 12:01 | Emergency (ER) | payer MEDICAID ==
[2018-07-26 12:02] VITALS: BMI 23.7
[2018-07-26 12:13] VITALS: TEMP 98.4; O2SAT 98
--- NOTE | 2018-07-26 12:46 | C.PDOC ---
History Of Present Illness 37 y/o male presents to the ER c/o x1 month of painful lump on the inguinal region. Pt reports that he took motrin for the pain with minimal relief. Pt denies any fever, chills, weakness, numbness, vomiting, trauma, penile discharge, or any urinary sx like incontinence and frequency. Chief Complaint (Nursing): Male Genitourinary History Per: Patient History/Exam Limitations: no limitations Onset/Duration Of Symptoms: Days (x1 month) Current Symptoms Are (Timing): Still Present Past Medical History Reviewed: Historical Data, Nursing Documentation, Vital Signs Vital Signs: Last Vital Signs Temp 98.4 F 07/26/18 12:07 Pulse 92 H 07/26/18 12:07 Resp 16 07/26/18 12:07 BP 124/78 07/26/18 12:07 Pulse Ox 98 07/26/18 12:07 Primary Care Provider: FAMILY PROVIDER,NO - Medical History PMH: Anxiety, Back Problems, Depression - [facility] Procedures DETOXIFICATION SERVICES FOR SUBSTANCE ABUSE TREATMENT (05/27/18) GROUP IMAGING AIDE FOR SUBSTANCE ABUSE TREATMENT, PSYCHOEDUCATION (05/27/18) GROUP IMAGING AIDE FOR SUBSTANCE ABUSE, COGNITIVE BEHAVIORAL (05/27/18) GROUP PSYCHOTHERAPY (05/27/18) INDIV PSYCHOTHERAPY FOR SUBSTANCE ABUSE TREATMENT, SUPPORT (05/27/18) INDIV PSYCHOTHERAPY FOR SUBSTANCE ABUSE, COGNITIV BEHAVIORAL (05/27/18) INDIV PSYCHOTHERAPY FOR SUBSTANCE ABUSE, PSYCHOEDUCATION (05/27/18) INDIVIDUAL PSYCHOTHERAPY, BEHAVIORAL (12/20/15) INDIVIDUAL PSYCHOTHERAPY, COGNITIVE-BEHAVIORAL (05/27/18) INDIVIDUAL PSYCHOTHERAPY, SUPPORTIVE (05/27/18) MEDICATION MANAGEMENT (01/30/18) MEDS MGMT FOR SUBSTANCE ABUSE TREATMENT, OTH REPL MED (01/30/18) Family History: States: Unknown Family Hx - Social History Hx Alcohol Use: Yes Hx Substance Use: Yes - Immunization History Hx Tetanus Toxoid Vaccination: No Hx Influenza Vaccination: No Hx Pneumococcal Vaccination: No Review Of Systems Constitutional: Negative for: Fever, Chills, Other (trauma) Gastrointestinal: Negative for: Vomiting Genitourinary: Negative for: Dysuria, Frequency, Incontinence, Penile Discharge Skin: Positive for: Other (painful lump on pelvic region ) Neurological: Negative for: Weakness, Numbness, Other (tingling ) Physical Exam - Physical Exam Appears: Non-toxic, No Acute Distress Skin: Warm, Dry, No Rash Head: Atraumatic, Normacephalic Eye(s): bilateral: Normal Inspection Neck: Normal ROM, Supple Chest: Symmetrical Cardiovascular: Rhythm Regular Respiratory: Normal Breath Sounds, No Wheezing Gastrointestinal/Abdominal: Soft, No Tenderness Male Genital: No Testicular Tenderness, No Testicular Swelling, Inguinal Tenderness (right ), No Scrotal Swelling, Circumcised, Other (fullness on right inguinal area; palpable lymphadenopathy; no erythema or ecchymosis ) Extremity: Capillary Refill (<2 sec ) Extremity: Bilateral: Atraumatic Neurological/Psych: Oriented x3, Normal Speech, Normal Motor, Normal Sensation Gait: Steady ED Course And Treatment - Laboratory Results Result Diagrams: 07/26/18 13:46 07/26/18 13:46 O2 Sat by Pulse Oximetry: 98 (RA) Pulse Ox Interpretation: Normal - CT Scan/US abdomen/pelvis Other Rad Studies (CT/US): Read By Radiologist, Radiology Report Reviewed CT/US Interpretation: Accession No. : [id number]. Patient Name / ID : MALICK BRYANT / [id number]. Exam Date : 07/26/2018 15:05:10 ( Approved ). Study Comment : Sex / Age : M / 37Y. Creator : Larry Walker Dictator : Heavenly Blanco MD. Director Of Software Engineering : Experimental Aircraft Mechanic : Heavenly Blanco MD. Approver2 : Report Date : 07/26/2018 15:15:48. My Comment : . Date of service: 07/26/2018. PROCEDURE: CT Abdomen and Pelvis with contrast. HISTORY: right sided inguinal lymphadenopathy x 1 month. COMPARISON: 04/19/2016. TECHNIQUE: Contrast dose: 100 mL of Visipaque 320 intravenously. Axial and reformatted coronal and sagittal CT images of the abdomen and pelvis were obtained after IV contrast administration. Radiation dose: Total exam DLP = 660.35 mGy-cm. This CT exam was performed using one or more of the following dose reduction techniques: Automated exposure control, adjustment of the mA and/or kV according to patient size, and/or use of iterative reconstruction technique. FINDINGS: LOWER THORAX: No evidence of acute pathology. LIVER: Mild hepatomegaly is noted. No gross lesion or ductal dilatation. GALLBLADDER AND BILE DUCTS: Unremarkable. PANCREAS: Unremarkable. No gross lesion or ductal dilatation. SPLEEN: Unremarkable. ADRENALS: Unremarkable. No mass. KIDNEYS AND URETERS: Unremarkable. No hydronephrosis. No solid mass. VASCULATURE: Unremarkable. No aortic aneurysm. No aortic atherosclerotic calcification or mural plaque present. BOWEL: Unremarkable. No obstruction. No gross mural thickening. APPENDIX: No evidence of appendicitis. PERITONEUM: Unremarkable. No free fluid. No free air. LYMPH NODES: Mildly enlarged periaortic/retroperitoneal lymph nodes are noted. There are also mildly enlarged left external iliac lymph nodes seen. Mildly enlarged right obturator lymph nodes seen. There are moderately enlarged lymph nodes at the right inguinal region. The largest lymph node measures 3.7 centimeter. BLADDER: Unremarkable. REPRODUCTIVE: Unr emarkable. BONES: No acute fracture. OTHER FINDINGS: None. IMPRESSION: Moderately enlarged right inguinal lymphadenopathy. Mildly enlarged right obturator left external iliac and retroperitoneal/periaortic lymph nodes are noted. The possibility of neoplasm such as lymphoma should be considered. No evidence of splenomegaly. Medical Decision Making Medical Decision Making: Plans: -- chem labs -- blood work -- CT abd and pelvis with PO and IV contrast ordered revealing Moderately enlarged right inguinal lymphadenopathy. Mildly enlarged right obturator left external iliac and retroperitoneal/periaortic lymph nodes are noted. The possibility of neoplasm such as lymphoma should be considered. No evidence of splenomegaly -patient informed of the results and strongly advised lymph node biopsy Patient verbalizes understanding and is in agreement with plan. Patient is stable for discharge. Disposition Counseled Patient/Family Regarding: Studies Performed, Diagnosis, Need For Followup, Rx Given - Disposition Referrals: [facility] [Outside] Non [facility] Provider, [Non-Staff] - Disposition: HOME/ ROUTINE Disposition Time: 16:08 Condition: STABLE Additional Instructions: Tylenol as needed for pain Follow up with PMD in [place], [place] or [facility] regarding enlarged lymph nodes and need for biopsy to rule out lymphoma (cancer of lymph node) Also Follow up with PMD or Clinic regarding blood in urine for further evaluation Return to ED if symptoms worsen Prescriptions: Acetaminophen [Tylenol] 650 mg PO Q8 PRN #30 capsule PRN Reason: Pain, Moderate (4-7) Instructions: Lymph Node Biopsy, Blood in the Urine (Hematuria), Adult (DC) Forms: [employer] (Turkmen) - Clinical Impression Clinical Impression: Right groin pain, Inguinal lymphadenopathy, Hematuria - 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 - Scribe Statement The provider has reviewed the documentation as recorded by the Alesia Isidro Do All medical record entries made by the Baltaibkina were at my direction and personally dictated by me. I have reviewed the chart and agree that the record accurately reflects my personal performance of the history, physical exam, medical decision making, and the department course for this patient. I have also personally directed, reviewed, and agree with the discharge instructions and disposition.
[2018-07-26] MEDS ORDERED: Iohexol 240 (50 ml) PO ONE (12:48)
[2018-07-26] MEDS ORDERED: Iohexol 240 (50 ml) ONE (13:15)
[2018-07-26 13:53] LABS: BASO # 0.1 K/uL (0.0-0.2); BASO % 0.7 % (0.0-2.0); EOS # 0.1 K/uL (0.0-0.7); EOS % 1.3 % (0.0-4.0); HEMOGLOBIN 13.5 g/dL (12.0-18.0); LYMPH # 1.3 K/uL (1.0-4.3); LYMPH % 13.2 % (20.0-40.0); MEAN CELL VOLUME 87.7 fL (80.0-94.0); MEAN CORPUSCULAR HEMOGLOBIN 29.8 pg (27.0-31.0); MEAN PLATELET VOLUME 8.1 fL (7.2-11.7); MONO % 10.3 % (0.0-10.0); NEUT # 7.3 K/uL (1.8-7.0); NEUT % 74.5 % (50.0-75.0); RBC 4.54 Mil/uL (4.40-5.90); RED CELL DISTRIBUTION WIDTH 13.2 % (11.5-14.5); WHITE BLOOD COUNT 9.8 K/uL (4.8-10.8)
[2018-07-26 14:00] LABS: SQUAMOUS EPITHIAL < 1 /hpf (0-5); URINE BILIRUBIN NEGATIVE (NEGATIVE); URINE BLOOD 1+ (NEGATIVE); URINE CLARITY Clear (Clear); URINE COLOR Yellow (YELLOW); URINE GLUCOSE (UA) NORMAL (Normal); URINE LEUKOCYTE ESTERASE NEG Leu/uL (Negative); URINE PROTEIN NEGATIVE (NEGATIVE); URINE UROBILINOGEN NORMAL mg/dL (0.2-1.0)
[2018-07-26 14:03] LABS: ALB/GLOB RATIO 1.2 (1.0-2.1); ALBUMIN 4.1 g/dL (3.5-5.0); ALT/SGPT 16 U/L (21-72); AST/SGOT 25 U/L (17-59); BLOOD UREA NITROGEN 10 mg/dL (9-20); CALCIUM 8.5 mg/dl (8.6-10.4); GFR NON-AFRICAN AMERICAN > 60
[2018-07-26] MEDS ORDERED: Oxycodone/Acetaminophen 5/325 mg Tab ONE (14:14)
[2018-07-26] MEDS ORDERED: Lidocaine Hydrochloride 5 ML INJ ONE (14:14)
[2018-07-26] MEDS ORDERED: Bacitracin 500 Units/gm Oint Foilpak UD ONE (14:14)
[2018-07-26] MEDS ORDERED: Iodixanol 320 MG/ML 100 ML BOTTLE IV ONE (14:39)
--- NOTE | 2018-07-26 15:45 | CT ---
Date of service: 07/26/2018 PROCEDURE: CT Abdomen and Pelvis with contrast HISTORY: right sided inguinal lymphadenopathy x 1 month COMPARISON: 04/19/2016 TECHNIQUE: Contrast dose: 100 mL of Visipaque 320 intravenously. Axial and reformatted coronal and sagittal CT images of the abdomen and pelvis were obtained after IV contrast administration. Radiation dose: Total exam DLP = 660.35 mGy-cm. This CT exam was performed using one or more of the following dose reduction techniques: Automated exposure control, adjustment of the mA and/or kV according to patient size, and/or use of iterative reconstruction technique. FINDINGS: LOWER THORAX: No evidence of acute pathology. LIVER: Mild hepatomegaly is noted. No gross lesion or ductal dilatation. GALLBLADDER AND BILE DUCTS: Unremarkable. PANCREAS: Unremarkable. No gross lesion or ductal dilatation. SPLEEN: Unremarkable. ADRENALS: Unremarkable. No mass. KIDNEYS AND URETERS: Unremarkable. No hydronephrosis. No solid mass. VASCULATURE: Unremarkable. No aortic aneurysm. No aortic atherosclerotic calcification or mural plaque present. BOWEL: Unremarkable. No obstruction. No gross mural thickening. APPENDIX: No evidence of appendicitis. PERITONEUM: Unremarkable. No free fluid. No free air. LYMPH NODES: Mildly enlarged periaortic/retroperitoneal lymph nodes are noted. There are also mildly enlarged left external iliac lymph nodes seen. Mildly enlarged right obturator lymph nodes seen. There are moderately enlarged lymph nodes at the right inguinal region. The largest lymph node measures 3.7 centimeter. BLADDER: Unremarkable. REPRODUCTIVE: Unremarkable. BONES: No acute fracture. OTHER FINDINGS: None. IMPRESSION: Moderately enlarged right inguinal lymphadenopathy. Mildly enlarged right obturator left external iliac and retroperitoneal/periaortic lymph nodes are noted. The possibility of neoplasm such as lymphoma should be considered. No evidence of splenomegaly.
[2018-07-26 16:26] VITALS: BP 112/68; PULSE 82; RESP 98
== END 2018-07-26 16:26 | disposition home or self-care (01) ==
LOC: C.ER 12:01
DX: R59.1 Generalized enlarged lymph nodes (principal); R10.31 Right lower quadrant pain; R31.9 Hematuria, unspecified
CPT/HCPCS: 74177; 80053; 81001; 85025; 99285; Q9966; Q9967